=== PATIENT | female | born 1945 | race Caucasian/White ===

== ENCOUNTER 2017-05-17 13:58 | Inpatient (IN) | payer MEDICARE, OTHER ==
[2017-05-17] VITALS (12 sets, daily range): BP systolic 126–200; BP diastolic 51–101; PULSE 39–55; RESP 14–22; O2SAT 91–97
[~2017-05-17] VITALS: Ht 170.2 cm; Wt 106.3 kg
--- NOTE | 2017-05-17 14:02 | ED.REPORT ---
HPI-General Illness Date of Service May 17, 2017 ED Provider: Dr. Henderson Pt is a 71 year old female with a hx of DM, Parkinson's and pneumonia presenting to the ED via EMS from complaining of SOB onset 2 weeks ago. Associated symptoms include intermittent LE swelling, cough, and malaise. She denies any hematuria, hematemesis, black or tarry stool, chest pressure, or any other symptoms at this time. SATs on room air at were 78%. Nursing Notes Stated Complaint: SHORTNESS OF BREATH Chief Complaint: SOB Nursing Notes Reviewed: Yes Allergies: Coded Allergies: Sulfa (Sulfonamide Antibiotics) (Verified Allergy, Intermediate, PRURITIS , 05/17/17) Scheduled Acetaminophen (Acetaminophen) 500 Mg Tablet 1,500 MG PO HS Amlodipine (Amlodipine) 10 Mg Tablet 10 MG PO QAM Atorvastatin (Lipitor) 20 Mg Tablet 20 MG PO HS Bimatoprost (Lumigan) 45 Drop/2.5 Ml Ophsoln 1 DROP BOTH_EYES HS Exenatide Inj (Bydureon Inj) 2 Mg Vial 2 MG SUBQ WEEKLY WEDNESDAYS Furosemide (Furosemide) 40 Mg Tablet 40 MG PO QAM Metformin ER (Metformin ER) 500 Mg Tablet 1,000 MG PO BIDWM Primidone (Primidone) 50 Mg Tablet 75 MG PO HS General Time Seen by MD: 14:02 Chief Complaint Other (SOB) Hx Obtained From: Patient, EMS Arrived By: Ambulance Sudden in Onset?: No Onset Occurred: More than a week ago... (2 weeks) Symptom Duration: Since onset Severity: Current: No pain currently Severity: Maximum: No pain Recent Healthcare: No recent doctor visit, No recent hospitalization Similar Sx Previous: No Past Medical History Past Medical History Parkinson's Hx of pneumonia Reports: Diabetes mellitus, Denies: Cancer, Coronary artery disease Ambulatory Status Independent Review of Systems Full Review of Systems Constitutional: Reports: Malaise Respiratory: Reports: Non-productive cough, Shortness of breath Cardiovascular: Denies: Chest pain GI: Denies: Hematemesis Female: Denies: Hematuria Musculoskeletal: Reports: Extremity swelling Complete sys rev & neg: except as marked. Physical Exam Vital Signs Vital Signs Date Time Temp Pulse Resp B/P Pulse Ox O2 Delivery O2 Flow Rate FiO2 05/17/17 16:45 41 14 191/61 97 Nasal Cannula 05/17/17 15:58 39 16 146/90 96 Nasal Cannula 2 05/17/17 14:29 44 19 200/94 96 Nasal Cannula 2 05/17/17 14:16 46 19 144/51 91 Room Air Initial VS: Reviewed Head / Eyes: Atraumatic, Normocephalic, PERRL ENT: Mucous membranes moist, Conjunctiva normal, No scleral icterus Neck: Supple, Non-tender, Full range of motion Respiratory: Breath sounds normal, Clear to auscultation, No respiratory distress Abdomen / GI: Soft, Non-tender, No guarding, No rebound, No distention Skin: Warm, Dry, No cyanosis Neurologic: Alert, Oriented, Nonfocal Psychiatric: Mood/affect normal, Behavior normal, Normal thought content General/Constitutional: Awake, Alert, No acute distress Appearance / Presentation: Positive: Obese Hypoxic Cardiovascular: Regular rhythm, Heart sounds NL Bradycardic Lower Extremity / Pelvis / MS: Neurologic intact, Vascular intact 2+ edema Interpretation & Diagnostics Lab Results Interpretation Result Diagram: 05/17/17 1416 05/17/17 1416 Test 05/17/17 14:16 05/17/17 15:02 White Blood Count 6.2th/mm3 (3.8-10.1) Red Blood Count 3.54mil/mm3 (3.90-5.20) Hemoglobin 10.0g/dL (12.0-15.6) Hematocrit 32.4% (35.0-46.0) Mean Corpuscular Volume 91.5fL (81-100) Mean Corpuscular Hemoglobin 28.2pg (27.0-35.0) Mean Corpuscular Hemoglobin Concent 30.9% (32.0-37.0) Red Cell Distribution Width 14.7% (12.3-15.4) Platelet Count 285bil/L (150-400) Neutrophils (%) (Auto) 64.7% (40-74) Lymphocytes (%) (Auto) 21.3% (14-46) Monocytes (%) (Auto) 10.6% (4-12) Eosinophils (%) (Auto) 2.6% (0-5) Basophils (%) (Auto) 0.6% (0-3) D-Dimer 1.21mg/L FEU (<0.50) Sodium Level 134mEq/L (134-144) Potassium Level 4.9mEq/L (3.5-5.2) Chloride Level 96mEq/L (97-108) Carbon Dioxide Level 22mmol/L (18-29) Blood Urea Nitrogen 23mg/dL (8-27) Creatinine 0.83mg/dL (0.57-1.00) Estimat Glomerular Filtration Rate 97mL/min (>59) Glucose Level 142mg/dL (60-99) Calcium Level 9.6mg/dL (8.5-10.1) Magnesium Level 1.8mg/dL (1.6-2.6) Total Bilirubin 0.2mg/dL (0.0-1.2) Aspartate Amino Transf (AST/SGOT) 12U/L (0-50) Alanine Aminotransferase (ALT/SGPT) 10U/L (0-32) Alkaline Phosphatase 74U/L (25-165) Troponin T < 0.010ug/L (0.0-0.011) Pro-B-Type Natriuretic Peptide 1226pg/mL (0-301) Total Protein 7.5g/dL (6.4-8.4) Albumin 4.1g/dL (3.4-5.0) Hold Urine Received (Received) ECG Interpretation ECG Interpretation: Junctional rhythm. Ventricular premature complex. RBBB. Time: 14:14 Interpreted by: ED physician Abnormal Rate: 40 (43) ECG Interpretation: Sinus bradycardia with a rate of 44. RBBB. Time: 14:27 Interpreted by: ED physician ECG Interpretation: Junctional rhythm. RBBB. Time: 14:29 Interpreted by: ED physician Abnormal Rate: 40 (43) X-Ray Chest Interpretation Chest Xray Interpretation: IMPRESSION: Patchy bibasilar consolidative opacities possibly low-grade aspiration/atelectasis versus pneumonia. Cannot exclude superimposed pulmonary edema. Please correlate clinically. Dictated by: Corey Yousif M.D. on 05/17/2017 at 16:13 View: Portable, 1 view Interpretation / Wet Read by: Interpret - Radiologist CT Chest Interpretation IMPRESSION: 1. Moderate right and small left bilateral pleural effusions. 2. Multiple bilateral pulmonary nodules, subcentimeter in size but suspicious for pulmonary metastases. 3. No central pulmonary emboli identified. 4. Mediastinal and right hilar lymphadenopathy, suspect for metastatic jonathan involvement. 5. Enhancing 1 cm left adrenal nodule, suspect for metastasis. 6. Bilateral lower lobe consolidation, probably atelectatic but pneumonia or aspiration cannot be excluded, right greater than left. Dictated by: Dheeraj Nino M.D. on 05/17/2017 at 15:51 Study type: CT pulm angiogram Interpretation / Wet Read by: Interpret - Radiologist Re-Eval/Medical Decision Med Decision/Clinical Course Hypoxia associated with probable heart failure and possible undiagnosed malignancy. Unclear whether the infiltrates on CT represent atelectasis or pneumonia however the patient has a cough and will be started on Rocephin and azithromycin. Patient was given IV furosemide. Return and follow-up precautions given. Time of Eval: 14:26 Patient Status: Condition improved Re-Evaluation/Progress Note: Pt SATS on O2 at 96. HR 43. Time of Eval: 16:13 Patient Status: Condition improved Re-Evaluation/Progress Note: Discussed radiology, CT, and lab results and plan for admission. Pt understands and agrees with plan. Consultation #1: Referral / Consult Name: Ela Vargas MD Consulted With: Cardiology Call Returned at: 16:27 Sheet Rocker: Will see patient, Agrees with plan Note: Dr. Greene will follow the patient. Consultation #2: Referral / Consult Name: Xiomy Myrick DO Consulted With: Hospitalist Call Returned at: 17:32 Sheet Rocker: Will see patient, Agrees with plan, Accepts admit Counseled Regarding: Diagnosis, Lab results, Need for follow-up Discharge & Departure Primary Impression: Hypoxia Disposition: ADMITTED TO HOSPITAL Discharge Condition All VS Reviewed: Yes Condition: Improved Referrals: Darryl Sharma MD (PCP) Rachelibethan Attestation Portions of this note were transcribed by Kaley Hyman. I, Dr. Henderson personally performed the history, physical exam and medical decision-making; I reviewed and confirmed the accuracy of the information in the transcribed note. Signed by: Nathan Reeder, 05/17/17 at 1737. copies to: Darryl Sharma MD, Timothy S DO May 17, 2017 14:02 KALEY HYMAN May 17, 2017 14:10
[2017-05-17] MEDS ORDERED: Ondansetron 2 mg/mL 2 mL Inj IVPUSH ONE (14:15)
[2017-05-17 14:20] LABS: BASOPHILS % (AUTO) 0.6 % (0-3); EOSINOPHILS % (AUTO) 2.6 % (0-5); MONOCYTES % (AUTO) 10.6 % (4-12); Mean Corpuscular Hemoglobin 28.2 pg (27.0-35.0); Mean Corpuscular Volume 91.5 fL (81-100); NEUTROPHILS % (AUTO) 64.7 % (40-74); Platelet Count 285 bil/L (150-400)
[2017-05-17 14:39] LABS: TROPONIN T < 0.010 ug/L (0.0-0.011)
[2017-05-17 14:50] LABS: Magnesium 1.8 mg/dL (1.6-2.6)
--- NOTE | 2017-05-17 16:09 | DRSVH ---
PROCEDURE: CT ANGIO CHEST PULMONARY EMBOLISM ([id number]) INDICATIONS: hypoxia, elevated ddimer TECHNIQUE: After the administration of intravenous contrast, 2 mm thick sections acquired from the pulmonary api dorie to the posterior costophrenic angles. 3-dimensional maximum intensity projection (MIP) coronal a nd sagittal reformats were then acquired through the thorax. For radiation dose reduction, the follo wing was used: automated exposure control, adjustment of mA and/or kV according to patient size. COMPARISON: Chest 12/29/2016 FINDINGS: Image quality: Excellent. Pulmonary arteries: Pulmonary arteries are normal in size, and demonstrate no intraluminal filling d efects to suggest central pulmonary embolism. Lungs and pleura: Small right pleural effusion on prior chest x-ray has no developed into a moderate pleural effusion and there is a small left pleural effusion now present. Interstitial markings are ac centuated by suboptimal inspiration and compression by pleural effusions with bibasilar atelectasis/i nfiltrates, right greater than left. Interspersed between slightly dilated pulmonary vessels are nume jo-ann pulmonary nodules such as 4-6 mm nodules in the right upper lobe, series 5/images 15 and 25 and lingula images 28 and 32. There is mild groundglass opacity in the posterior and inferior left upper lobe. Mediastinum: Heart size is normal, without pericardial effusion. There is mediastinal adenopathy wit h paratracheal nodes measuring 10-15 mm in short diameter, right hilar adenopathy with nodes up to 13 mm, and probable subcarinal adenopathy partially obscured. Thoracic aorta is normal in caliber and enhancement. Esophagus is normal in caliber, without hiatal hernia. Bones and chest wall: No suspicious bony lesions. Ribs and thoracic spine appear intact throughout. Thyroid gland is mildly heterogenic. No axillary or supraclavicular adenopathy. Abdomen: Visualized upper abdominal solid organs appear normal in the early arterial phase of enhanc ement. There is a mildly enhancing 1 cm left adrenal nodule that is nonspecific but suspicious in vie w of other findings. IMPRESSION: 1. Moderate right and small left bilateral pleural effusions. 2. Multiple bilateral pulmonary nodules, subcentimeter in size but suspicious for pulmonary metastase s. 3. No central pulmonary emboli identified. 4. Mediastinal and right hilar lymphadenopathy, suspect for metastatic jonathan involvement. 5. Enhancing 1 cm left adrenal nodule, suspect for metastasis. 6. Bilateral lower lobe consolidation, probably atelectatic but pneumonia or aspiration cannot be exc luded, right greater than left. Dictated by: Dheeraj Nino M.D. on 05/17/2017 at 15:51 Approved by: Dheeraj Nino M.D. on 05/17/2017 at 16:07
--- NOTE | 2017-05-17 16:19 | DRSVH ---
PROCEDURE: X-RAY CHEST ONE VIEW, PORTABLE ([id number]) INDICATIONS: dyspnea, leg edema, hypoxia TECHNIQUE: One view of the chest was acquired. COMPARISON: [facility], CR, XR CHEST 2VW, 12/29/2016, 14:54. FINDINGS: Surgical changes and devices: None. Lungs and pleura: No pleural effusions or pneumothorax. Patchy consolidative opacities in the perihi lar regions and lung bases including the retrocardiac region. Lung volumes are mildly decreased. Mediastinum: Mediastinal contours appear normal. Heart size is normal. Bones and chest wall: No suspicious bony lesions. Overlying soft tissues appear unremarkable. IMPRESSION: Patchy bibasilar consolidative opacities possibly low-grade aspiration/atelectasis versus pneumonia. Cannot exclude superimposed pulmonary edema. Please correlate clinically. Dictated by: Corey Yousif M.D. on 05/17/2017 at 16:13 Approved by: Corey Yousif M.D. on 05/17/2017 at 16:17
[2017-05-17] MEDS ORDERED: Azithromycin Inj 500 MG in Dextrose 5% w/Vial Mate 250 ML IV ONE (16:25)
[2017-05-17] MEDS ORDERED: cefTRIAXone Inj 2,000 MG in Dextrose 5% Minibag Plus 50 ML IV ONE (16:25)
[2017-05-17] MEDS ORDERED: Furosemide 10 mg/mL 4 mL Inj IVPUSH ONE (16:25)
[2017-05-17] MEDS ORDERED: Ondansetron 2 mg/mL 2 mL Inj IVPUSH PRN ×2 (17:40→17:55)
[2017-05-17] MEDS ORDERED: Alum-Mag Hydrox-Simeth 30 mL Suspension PO PRN ×2 (17:40→17:55)
[2017-05-17] MEDS ORDERED: PRIM50TA PO (17:54)
[2017-05-17] MEDS ORDERED: BIMA2.5D5 BOTH_EYES (17:54)
[2017-05-17] MEDS ORDERED: Polyethylene Glycol (PEG) 17 Gm Powder PO PRN (17:55)
[2017-05-17] MEDS ORDERED: ATOR20TA PO (17:57)
[2017-05-17] MEDS ORDERED: ACET-171 PO (17:57)
[2017-05-17] MEDS ORDERED: EXEN2VIA SUBQ (17:57)
[2017-05-17] MEDS ORDERED: METF500T7 PO (17:57)
[2017-05-17] MEDS ORDERED: FURO40TA4 PO (17:57)
[2017-05-17] MEDS ORDERED: AMLO10TA3 PO (17:57)
--- NOTE | 2017-05-17 18:34 | PCM.HPMED ---
Subjective Date of Service May 17, 2017 Primary Provider: Admitting Physician: Xiomy Myrick DO Primary Care Physician: Jose Angel Neal MD Attending Physician: Xiomy Myrick DO Chief Complaint: Increasing shortness of breath and fatigue for 2 weeks History of Present Illness: Allie Lopez is a pleasant 71 year old female with a past medical history significant for Hypertension, Diabetes type 2, and Parkinson's disease that presented to the Emergency Department on 05/17 via EMS with complaints of shortness of breath and fatigue that has been increasing steadily for 2 weeks now. She denies any inciting event, just a progressive feeling of exhaustion and trouble breathing that now even walking 10 feet is almost impossible for her. She also endorses a nonproductive cough and intermittent bilateral LE edema throughout the past 2 weeks. She denies any chest pain or pressure, palpitations, fever/chills, nausea/vomiting, hemoptysis, melena or headaches. Review of Systems: A comprehensive review of systems was conducted with the patient and found to be negative except as above in the History of Present Illness. Allergies Coded Allergies: Sulfa (Sulfonamide Antibiotics) (Verified Allergy, Intermediate, PRURITIS , 05/17/17) Home Medications Primidone 50mg daily Amlodipine 10mg qAM Atorvastatin 20mg qHS Exenatide 2mg Subq weekly Lasix 40mg daily qAM Metformin 500mg BID PMH Diabetes Mellitus, Type 2 insulin using Parkinson's Disease Hypertension Surgical History Right Hip Replacement Right shoulder tumor removal at age 7 Right Ankle Surgery Family History Father: of Lung Cancer (smoker, worked in Uranium mines) Mother: Macular degeneration, otherwise healthy and passed at 94 Social History Hx Alcohol Use: Yes (1/week) Hx Substance Use: No Hx Tobacco Use: No Living Arrangement: with Family Exam Vital Signs Vital Sign - Last Date Time Temp Pulse Resp B/P Pulse Ox O2 Delivery O2 Flow Rate FiO2 05/17/17 18:17 55 15 193/101 96 Nasal Cannula 3 Exam General: Obese elderly woman in no acute distress, well-developed, well- nourished, appropriately interactive HEENT: Normocephalic, atraumatic. External ears without defect. Pupils equal, round, and reactive to light and accommodation. Oropharynx free of erythema and cobble stoning with moist mucosa. Neck: Supple with full range of motion. No jugular venous distension. No lymphadenopathy or thyromegaly. Cardiovascular: Regular rate and rhythm with no murmurs, rubs, or gallops appreciated Pulmonary: Wet crackles in the lung bases bilaterally. No wheezing/rhonchi. Normal respiratory effort without use of accessory muscles. Abdomen: Bowel tones present. Soft, obese, nontender, nondistended. No hepatosplenomegaly or masses appreciated. Extremities: Edema up to the knees bilaterally. No clubbing, cyanosis, erythema appreciated. Skin: Normal temperature, turgor, and texture Neurological: Cranial nerves grossly intact. Normal muscle strength, tone, and bulk. Left hand tremulous throughout exam. No known gait impairment. Psychiatric: Normal mood and affect. Alert and oriented to person, place, and time. Lab and Diagnostics Result Diagram: 05/17/17 1416 05/17/17 1416 Microbiology Blood cultures pending UA ordered X-Rays, CTs and MRIs Chest XR 05/17 IMPRESSION: Patchy bibasilar consolidative opacities possibly low-grade aspiration/ atelectasis versus pneumonia. Cannot exclude superimposed pulmonary edema. Please correlate clinically. Dictated by: Corey Yousif M.D. on 05/17/2017 at 16:13 Approved by: Corey Yousif M.D. on 05/17/2017 at 16:[address]/Angio 05/17 IMPRESSION: 1. Moderate right and small left bilateral pleural effusions. 2. Multiple bilateral pulmonary nodules, subcentimeter in size but suspicious for pulmonary metastases. 3. No central pulmonary emboli identified. 4. Mediastinal and right hilar lymphadenopathy, suspect for metastatic jonathan involvement. 5. Enhancing 1 cm left adrenal nodule, suspect for metastasis. 6. Bilateral lower lobe consolidation, probably atelectatic but pneumonia or aspiration cannot be excluded, right greater than left. Dictated by: Dheeraj Nino M.D. on 05/17/2017 at 15:51 Approved by: Dheeraj Nion M.D. on 05/17/2017 at 16:07 Assessment & Plan Allie Lopez is a pleasant 71 year old female with a past medical history significant for Hypertension, Diabetes type 2, and Parkinson's disease that presented to the Emergency Department on 05/17 via EMS with complaints of shortness of breath and fatigue that has been increasing steadily for 2 weeks now. Dyspnea on Exertion acute (new onset) CHF, present on admission. Acute. Ongoing. - Patient has nonproductive cough, increasing SOB for 2 weeks - D-dimer positive, CT angio negative for PE - CXR and CT Angio images reviewed - infectious vs. metastatic origin - Blood cultures ordered - Received Ceftriaxone, Azithromycin in the ED - Respiratory PCR ordered - Elevated BNP 1226 - Legionella, Pneumococcus ordered - Sputum culture ordered if cough become productive - Echocardiogram ordered - Continue antibiotics as above pending cultures Pulmonary Lesions, present on admission. Chronic. Ongoing. - Patient has family history of lung cancer, no smoking history - CT Angio revealed multiple bilateral pulmonary lesions with bibasilar effusions - Will discuss findings with patient in the morning to evaluate - Consider oncology consult in the morning Bradycardia, present on admission. Unknown chronicity. Ongoing. - EKG showed NSR, bradycardic with RBBB - Patient reports ~2 weeks fatigue and dyspnea on exertion - Echo ordered - Avoid chronotropic blood pressure meds Acute Hypoxic Respiratory Failure, present on admission. Stable. - Patient is not on oxygen at baseline - Patient on 2L nasal cannula to maintain appropriate o2 saturations - Likely due to bibasilar pleural effusions as above - Continue to monitor Hypertension, present on admision. Chronic. Ongoing. - Patient's reports good BP control with home meds (Amlodipine 10mg, Lasix 40mg) - BP in the Emergency Department raised to 190-200 systolic - Continue home meds as above - Enalapril 5mg PO once - Avoid chronotropic meds as she is bradycardic - Continue to monitor Diabetes Mellitus Type 2, present on admission. Chronic. Stable. - Patient on Metformin, Exenatide at home - Hold Metformin, Exenatide - HA1C ordered - Start low dose correctional and nutritional scale - Continue to monitor Parkinson's Disease, present on admission. Chronic. Stable. - Continue Primidone Obesity, present on admission. Chronic. - BMI 36.7 - Consider dietary consult - Educate patient on available community resources Acetaminophen for mild pain, headache, and fever when necessary. Bowel regimen Senna and MiraLAX scheduled as necessary. Zofran when necessary for nausea and vomiting. SubQ heparin held for now. SCDs in place. Patient Status: Patient is admitted to the inpatient service with length of stay likely >2 midnights due to complexity of presenting symptoms, medical work up, and treatment plan. VTE Mechanical Devices: Intermittant Pneumatic CD Resuscitation Status: CPR: Attempt Resuscitation (Patient would like "an attempt made" but that her boat patcher plastic friend Dr. Paul Velez would be in charge and when to "call it") Attending Statement The patient was seen and examined together with Dr. Harry on 05/17/17 and I have added additional information to the note above. Brian Harry DO May 17, 2017 18:34 Xiomy Myrick DO May 21, 2017 17:23
[2017-05-17] MEDS ORDERED: Insulin LISPRO Low-Dose Scale SUBQ PRN (19:00)
[2017-05-17] MEDS ORDERED: Glucose 40% Oral Gel 15 Gm Tube PO PRN (19:00)
[2017-05-17] MEDS ORDERED: Dextrose 5% 250 ML IV PRN (19:10)
[2017-05-17] MEDS ORDERED: Enalaprilat 1.25 mg/mL 2 mL Inj IVPUSH ONE (19:35)
[2017-05-17] MEDS: Albuterol-Ipratropium 3 mL Inhalation Solution NEB SCH (20:04)
[2017-05-17 20:12] LABS: APPEARANCE,URINE CLEAR (CLEAR,HAZY); COLOR,URINE YELLOW (YELLOW); OCCULT BLOOD,URINE SMALL (NEGATIVE); PH,URINE 5.5 (5.0-8.0); UROBILINOGEN,URINE NORMAL (NORMAL)
[2017-05-17] MEDS: cefTRIAXone Inj 2,000 MG in Dextrose 5% Minibag Plus 50 ML IV SCH (22:49)
--- NOTE | 2017-05-17 22:57 | NUR ---
admit note pt already in room at change of shift, pt reports not feeling good over the last 5 weeks, progressively getting weaker and more SOB, pt went to urgent care and found to by hypoxic sent over to ED. r/o PE with CT, pt on 1L NC SpO2 93-95%, pt with SOB during activity and with increased talking, gave lasix in ED pt voiding large amounts and actually states she is feeling better, IV ABX started late r/t waiting for second BC to be obtained, pts BP elevated 190s/70s gave IV Vasotec, per MD wait one hour if still elevated give PO Vasotec, SBP 120s. tele SB with IVCD rate 46-48, pt denies any pain, BG 128 pt takes metformin which is on hold r/t CT. pt able to transfer to [facility], orientated pt to call light, room and bed.
[2017-05-18] VITALS (12 sets, daily range): BP systolic 149–186; BP diastolic 62–85; PULSE 41–63; RESP 14–22; O2SAT 92–96
[2017-05-18] MEDS: Heparin 5,000 Unit/mL Inj SUBQ SCH ×5 (00:02→23:36)
[2017-05-18 03:23] LABS: BASOPHILS % (AUTO) 0.5 % (0-3); EOSINOPHILS % (AUTO) 3.4 % (0-5); MONOCYTES % (AUTO) 14.2 % (4-12); Mean Corpuscular Hemoglobin 28.2 pg (27.0-35.0); Mean Corpuscular Volume 91.5 fL (81-100); NEUTROPHILS % (AUTO) 61.1 % (40-74); Platelet Count 245 bil/L (150-400)
[2017-05-18 03:44] LABS: Magnesium 1.7 mg/dL (1.6-2.6)
--- NOTE | 2017-05-18 05:37 | NUR ---
HR/BP pt becoming hypertensive again, informed MD no new orders received and MD not wanting to give PO Vasotec, pts HR 35-41 this evening while she is sleeping called no new orders received. pt asymptomatic with both
[2017-05-18] MEDS: Albuterol-Ipratropium 3 mL Inhalation Solution NEB SCH ×4 (07:35→20:01)
[2017-05-18] MEDS ORDERED: cefTRIAXone Inj 2,000 MG in Dextrose 5% Minibag Plus 50 ML IV SCH (08:00)
[2017-05-18] MEDS ORDERED: Furosemide 10 mg/mL 4 mL Inj IVPUSH ONE (09:20)
--- NOTE | 2017-05-18 09:45 | NUR ---
Rounds notified that pt remains bradycardic in 40s with dips into 30s overnight. Pt denied symptoms this am while up to [facility] Per pt she is feeling improved from yesterday with easier breathing and decreased bilateral lower extremity edema. Remains stable on 1LNC. Will continue to monitor.
--- NOTE | 2017-05-18 15:02 | NUR ---
Social Work Note: Initial Assessment/Multidisciplinary Rounds Data& Assessment: EMR reviewed. Pt was discussed in AM rounds. Per MD, pt is being followed by cardiology and may have a new CHF diagnosis. SW met with pt and pt at bedside to discuss discharge planning, SW role explained and Discharge Planning checklist packet provided. Allie Lopez is a 71 year old female admitted on 05/12/2017 for sepsis and anemia. Pt has Medicare and [employer] insurance coverage. Pt sees Jose Angel Espinosa MD for primary care. Pt lives in [place] with her spouse and is independent at baseline. Pt is independent with self care during this hospitalization. MD does not have any concerns about capacity to care for self at home. Pt does not require any DME at baseline, but does own a FWW and cane at home. Pt does not have HH hx but has been to [facility] this November after a hip replacement. Pt does not have VA benefits or LTC insurance. Pt currently on 1L of oxygen and normally does not require oxygen at baseline. Pt does have DPOA/AD completed, SW requested a copy when possible. Pt and pt denies any needs at this time. SW to continue to follow for pt needs or MD orders. Plan: Anticipated discharge home via POV when medically ready. Pt and pt denies any needs at this time. SW to continue to follow for pt needs or MD orders. TERESO Servin Addendum: 05/18/17 at 1521 by KODY PERERA Amended: Links added.
--- NOTE | 2017-05-18 15:21 | NUR ---
Blood Sugar notified of lunch blood glucose 191. to order SS insulin. Will monitor.
[2017-05-18] MEDS ORDERED: Glucose 40% Oral Gel 15 Gm Tube PO PRN (15:25)
[2017-05-18] MEDS ORDERED: Dextrose 5% 250 ML IV PRN (15:30)
[2017-05-18] MEDS: Insulin LISPRO 300 Unit/3 mL Inj SUBQ SCH ×2 (17:06→22:07)
--- NOTE | 2017-05-18 17:24 | DRSVH ---
Merged With [facility] [address] [place] [address] Echocardiogram Report Name: KANU FALCON HStudy Date: 05/18/2017 Height: 67 in Hospital Exam Location: [facility] Weight: 243 lb Gender: Female BSA: 2.2 m2 : 1945 Age: 71 yrs BP: 149/62 mm Hg Reason For Study: SOB, ELEVATED BNP, EDEMA Ordering Physician: Debbie AlemanistPerformed By: Jaren Shin Referring Physician: SAVANNAH JOHNSON Interpretation Summary There is normal left ventricular wall thickness. Left ventricular ejection fraction is estimated to be .60. The left atrium is severely dilated. There is mild mitral regurgitation. There is mild to moderate tricuspid regurgitation. The right ventricular systolic pressure is estimated at 45 mmHg assuming a right atrial pressure of 8 mm Hg. Procedure: A two-dimensional transthoracic echocardiogram with color flow and Doppler was performed. The study quality was technically adequate. Comparison is made with the echocardiogram of 12/29/12. The patient was in sinus bradycardia with heart rates between 41-46 bpm during the exam. Left Ventricle: The left ventricle is normal in size. There is normal left ventricular wall thickness. Left ventricular ejection fraction is estimated to be .60. Left ventricular wall motion is normal. Assessment of diastolic parameters suggests a pseudonormalization pattern, consistent with elevated filling pressures. Right Ventricle: The right ventricle is borderline dilated. Atria: The left atrium is severely dilated. Borderline right atrial enlargement. There is no Doppler evidence for an interatrial shunt. Mitral Valve: The mitral valve leaflets are mildly calcified. There is mild to moderate mitral annular calcification. The mitral valve chordae are thickened and/or calcified. There is mild mitral regurgitation. Aortic Valve: The aortic valve is normal in structure and function. There is mild aortic valve sclerosis. There is trace aortic regurgitation. Tricuspid Valve: There is mild to moderate tricuspid regurgitation. The right ventricular systolic pressure is estimated at 45 mmHg assuming a right atrial pressure of 8 mm Hg. Compared to the prior echo exam, there has been an increase in the severity of pulmonary hypertension. Pulmonic Valve: The pulmonic valve is not well seen, but is grossly normal. There is a trace or physiologic amount of pulmonic regurgitation. Great Vessels: The aortic root is normal size. The ascending aorta is mildly enlarged. The pulmonary artery is normal size. The IVC is dilated (diameter is greater than 2.1 cm) yet it collapses greater than 50% with a sniff. This suggests a right atrial pressure of 8 mm Hg. Pericardium/ Pleura There is no pericardial effusion. There is a small left -sided pleural effusion. MMode/2D Measurements & Calculations LVIDd: 4.9 cm RA long axis LVOT diam LVIDs: 3.1 cm LA A2 area: 25.2 cm FS: 36.6 % LA A4 area: 29.3 cm RA area AoV Opening EPSS: 0.30 cm LA length (vol): 5.9 cm IVSd: 1.0 cm LA vol: 106.4 ml : 20.4 cm Ao root diam LVPWd: 0.89 cm LA vol index RA vol : 67.0 ml asc Aorta RA Diam: 3.4 cm IVC diam: 3.2 cm : 30.5 mm2 LV meyers. diameter/BSA LV sys. diameter/BSA (cm/m^2): 2.2 (cm/m^2): 1.4 Doppler Measurements & Calculations Ao V2 max: 215.5 cm/secMV E max jonny MV E/A: 1.4 TR max jonny Ao max P.6 mmHg : 137.9 cm/sec Med Peak E' Jonny : 304.1 cm/sec Ao mean P.2 mmHg MV A max jonny TR max PG LVOT Max Jonny : 98.4 cm/sec E/E' med: 24.7 : 37.0 mmHg : 118.7 cm/sec Lat Peak E' Jonny PA V2 max DEBBIE(I,D): 1.7 cm : 112.7 cm/sec sev ratio: 0.58 E/E' lat: 21.1 PA mean PG E/e' average : 2.6 mmHg MV dec time: 0.35 sec Ao V2 mean LV V1 max PG PA V2 mean : 142.8 cm/sec : 75.9 cm/sec Ao V2 VTI: 53.4 cmLV V1 VTI PA pr(Accel) DEBBIE(V,D): 1.7 cm2 : 31.0 cm : 18.3 mmHg DEBBIE indexed to BSA (cm^2/m^2): 0.79 Electronically signed by: Bridger Green on Reading Physician:05/18/2017 05:24 PM
--- NOTE | 2017-05-18 18:28 | PCM.PNMED ---
Subjective Date of Service May 18, 2017 Subjective Overnight there were no acute events. This morning, Mrs. Lopez reports breathing easier and feeling better than on admission. She denies chest pain, palpitations, productive cough, nausea/ vomiting, fevers or chills. We spent most our discussion on the multiple pulmonary nodules and what they mean to her overall treatment. Exam Vital Signs Vital Sign - Last Date Time Temp Pulse Resp B/P Pulse Ox O2 Delivery O2 Flow Rate FiO2 05/18/17 17:25 157/71 05/18/17 16:31 36.7 56 16 95 Nasal Cannula 1.00 Intake and Output 05/17/17 05/17/17 05/18/17 Cumulative From/Thru 15:00 23:00 07:00 05/17/17 14:16 - 05/18/17 06:06 Intake Total 1015 ml 1015 ml Output Total 400 ml 1550 ml 1950 ml Balance -400 ml -535 ml -935 ml Intake Oral 720 ml 720 ml IV Total 295 ml 295 ml Output Urine Total 400 ml 1550 ml 1950 ml # Voids 1 1 Exam General: Obese elderly woman in no acute distress, well-developed, well- nourished, appropriately interactive HEENT: NCAT. Pupils equal, round, and reactive to light and accommodation. Oropharynx free of erythema with moist mucosa. Neck: Supple with full range of motion. No jugular venous distension. No thyromegaly. Cardiovascular: Bradycardic with normal rhythm without murmurs, rubs, or gallops appreciated Pulmonary: Slight crackles in the lung bases bilaterally. No wheezing/rhonchi. Normal respiratory effort without use of accessory muscles. Abdomen: Bowel tones present. Soft, obese, nontender, nondistended. No hepatosplenomegaly appreciated. Extremities: Mild edema up to the knees bilaterally. No clubbing, cyanosis, erythema appreciated. Skin: Normal temperature, turgor, and texture Neurological: Cranial nerves grossly intact. Normal muscle strength, tone, and bulk. Left hand tremulous throughout exam. No known gait impairment. Psychiatric: Normal mood and affect. Alert and oriented to person, place, and time. IVs and Medications Medications Reviewed: Medications were reviewed in detail Lab and Diagnostics Result Diagram: 05/18/17 0250 05/18/17 0250 Microbiology Blood cultures pending UA ordered X-Rays, CTs and MRIs Chest XR 05/17 IMPRESSION: Patchy bibasilar consolidative opacities possibly low-grade aspiration/ atelectasis versus pneumonia. Cannot exclude superimposed pulmonary edema. Please correlate clinically. Dictated by: Corey Yousif M.D. on 05/17/2017 at 16:13 Approved by: Corey Yousif M.D. on 05/17/2017 at 16:[address]/Angio 05/17 IMPRESSION: 1. Moderate right and small left bilateral pleural effusions. 2. Multiple bilateral pulmonary nodules, subcentimeter in size but suspicious for pulmonary metastases. 3. No central pulmonary emboli identified. 4. Mediastinal and right hilar lymphadenopathy, suspect for metastatic jonathan involvement. 5. Enhancing 1 cm left adrenal nodule, suspect for metastasis. 6. Bilateral lower lobe consolidation, probably atelectatic but pneumonia or aspiration cannot be excluded, right greater than left. Dictated by: Dheeraj Nino M.D. on 05/17/2017 at 15:51 Approved by: Dheeraj Nino M.D. on 05/17/2017 at 16:07 Cardiac Echo Impressions Echo 05/18/17 Interpretation Summary There is normal left ventricular wall thickness. Left ventricular ejection fraction is estimated to be .60. The left atrium is severely dilated. There is mild mitral regurgitation. There is mild to moderate tricuspid regurgitation. The right ventricular systolic pressure is estimated at 45 mmHg assuming a right atrial pressure of 8 mm Hg. Assessment & Plan Allie Lopez is a pleasant 71 year old female with a past medical history significant for Hypertension, Diabetes type 2, and Parkinson's disease that presented to the Emergency Department on 05/17 via EMS with complaints of shortness of breath and fatigue that has been increasing steadily for 2 weeks now. Dyspnea on Exertion acute (new onset) diastolic CHF, present on admission. Acute. Ongoing. - Patient has nonproductive cough, increasing SOB for 2 weeks - D-dimer positive, CT angio negative for PE - CXR and CT Angio images reviewed - infectious vs. metastatic origin - Blood cultures negative - Received Ceftriaxone, Azithromycin in the ED - Respiratory PCR panel trujillo-negative - Legionella, Pneumococcus negative - Sputum culture ordered if cough become productive - Echocardiogram as above - Will discontinue antibiotics 05/19 depending on the chest xray Pulmonary Lesions, present on admission. Chronic. Ongoing. - Patient has family history of lung cancer, no smoking history - CT Angio revealed multiple bilateral pulmonary lesions with bibasilar effusions - Case discussed with IR, no lesions amenable to biopsy at this time - Case discussed with Oncology, recommend PET scan and follow up as outpatient - Discussed with patient; plan is to get repeat imaging in 3 months to reevaluate Bradycardia, present on admission. Unknown chronicity. Ongoing. - EKG showed NSR, bradycardic with RBBB - Patient reports ~2 weeks fatigue and dyspnea on exertion - Echo as above - Avoid chronotropic blood pressure meds -Cardiology consulted for ongoing symptomatic bradycardia Acute Hypoxic Respiratory Failure, present on admission. Improving. - Patient is not on oxygen at baseline - Patient decreased to 1L nasal cannula to maintain appropriate o2 saturations - Likely due to bibasilar pleural effusions as above - Continue to wean as able Hypertension, present on admision. Chronic. Improving. - Patient's reports good BP control with home meds (Amlodipine 10mg, Lasix 40mg) - BP in the Emergency Department raised to 190-200 systolic - Amlodipine stopped due to LE edema, Lisinopril started - Consider increasing Lisinopril if blood pressure increases - Avoid chronotropic meds as she is bradycardic Diabetes Mellitus Type 2, present on admission. Chronic. Stable. - Patient on Metformin, Exenatide at home - Hold Metformin, Exenatide - HA1C pending - Continue low dose correctional and nutritional scale - Will consider adding Lantus depending on morning blood sugars Parkinson's Disease, present on admission. Chronic. Stable. - Continue Primidone Obesity, present on admission. Chronic. - BMI 36.7 - Educate patient on available community resources Acetaminophen for mild pain, headache, and fever when necessary. Bowel regimen Senna and MiraLAX scheduled as necessary. Zofran when necessary for nausea and vomiting. SubQ heparin on board. SCDs in place. Disposition: Patient will likely be here for 2-3 more days depending on the continued improvement of her respiratory status and overall medical stability. VTE Mechanical Devices: Intermittant Pneumatic CD Resuscitation Status: CPR: Attempt Resuscitation (Patient would like "an attempt made" but that her assembly instructions writer friend Dr. Paul Velez would be in charge and when to "call it") Attending Statement The patient was seen and examined together with Dr. Harry on 05/18/17 and I have added additional information to the note above. Brian Harry DO May 18, 2017 18:28 Xiomy Myrick DO May 21, 2017 17:18
[2017-05-18] MEDS: cefTRIAXone Inj 2,000 MG in Dextrose 5% Minibag Plus 50 ML IV SCH (20:33)
[2017-05-18] MEDS ORDERED: Azithromycin Inj 500 MG in Dextrose 5% w/Vial Mate 250 ML IV SCH (21:00)
[2017-05-19] VITALS (15 sets, daily range): BP systolic 138–203; BP diastolic 62–84; PULSE 42–70; RESP 18–20; O2SAT 91–99
[2017-05-19 02:54] LABS: BASOPHILS % (AUTO) 0.4 % (0-3); EOSINOPHILS % (AUTO) 4.2 % (0-5); MONOCYTES % (AUTO) 17.2 % (4-12); Mean Corpuscular Hemoglobin 28.2 pg (27.0-35.0); Mean Corpuscular Volume 91.1 fL (81-100); NEUTROPHILS % (AUTO) 54.3 % (40-74); Platelet Count 224 bil/L (150-400)
--- NOTE | 2017-05-19 06:31 | NUR ---
weakness pt reports feeling weaker this morning then she has felt, pt still SB rate high 30 low 40s, pt SBP still elevated in the 160s. pt denies any or dizziness just generalized weakness.
[2017-05-19] MEDS: Insulin LISPRO 300 Unit/3 mL Inj SUBQ SCH ×4 (08:00→21:58)
[2017-05-19] MEDS: Furosemide 10 mg/mL 4 mL Inj IVPUSH SCH ×2 (08:14→21:54)
[2017-05-19] MEDS: Heparin 5,000 Unit/mL Inj SUBQ SCH ×2 (08:15→17:11)
[2017-05-19] MEDS: Albuterol-Ipratropium 3 mL Inhalation Solution NEB SCH ×5 (08:28→20:14)
[2017-05-19] MEDS ORDERED: EXENATIDE 2 MG SUBQ SCH (09:00)
--- NOTE | 2017-05-19 09:11 | DRSVH ---
PROCEDURE: X-RAY CHEST, TWO VIEWS ([id number]) INDICATIONS: 71 year-old female with shortness of breath and pleural effusions. TECHNIQUE: 2 views of the chest were acquired. COMPARISON: [facility], CR, XR CHEST 1VW (PORTABLE), 05/17/2017, 15:39. [facility], CR, XR CHEST 2VW, 12/29/2016, 14:54. FINDINGS: Surgical changes and devices: None. Lungs and pleura: Patchy bibasilar airspace opacities persist. Trace bibasilar pleural effusions are present. No pneumothorax. Mediastinum: Mediastinal contours are normal. Heart size is normal. Bones and chest wall: No suspicious bony abnormalities. Soft tissues appear unremarkable. IMPRESSION: 1. Persistent patchy bibasilar atelectasis, aspiration, or early bronchopneumonia. 2. Trace bibasilar pleural effusions are of uncertain etiology. Dictated by: Krunal Isabel M.D. on 05/19/2017 at 8:08 Approved by: Krunal Isabel M.D. on 05/19/2017 at 8:09
--- NOTE | 2017-05-19 11:04 | PCM.PNMED ---
Subjective Date of Service May 19, 2017 Subjective Overnight the patient attempted to sleep without oxygen and her saturations fell into the upper 80's. This morning Mr. Lopez reports feeling a sense of generalized weakness and more short of breath than previously. She had a conversation on the phone with her daughter and noted that at the end she was having issues breathing. She denies productive cough, chest pain, fever/chills, nausea/vomiting, or hemoptysis. Exam Vital Signs Vital Sign - Last Date Time Temp Pulse Resp B/P Pulse Ox O2 Delivery O2 Flow Rate FiO2 05/19/17 08:29 49 18 93 Nasal Cannula 1.00 05/19/17 08:08 36.6 177/72 Intake and Output 05/18/17 05/18/17 05/19/17 Cumulative From/Thru 15:00 23:00 07:00 05/17/17 14:16 - 05/19/17 06:24 Intake Total 800 ml 1645 ml 3460 ml Output Total 1475 ml 2100 ml 5525 ml Balance -675 ml -455 ml -2065 ml Intake Oral 800 ml 1300 ml 2820 ml IV Total 345 ml 640 ml Output Urine Total 1475 ml 2100 ml 5525 ml # Voids 1 # Bowel Movements 2 2 Exam General: Obese elderly woman sitting upright in no acute distress, well- developed, well-nourished, appropriately interactive HEENT: NCAT. Pupils equal, round, and reactive to light and accommodation. Oropharynx free of erythema with moist mucosa. Neck: Supple with full range of motion. No jugular venous distension. No thyromegaly. Cardiovascular: Bradycardic with normal rhythm without murmurs, rubs, or gallops appreciated Pulmonary: Coarse breath sounds bilaterally. No wheezing/rhonchi. Normal respiratory effort without use of accessory muscles. Abdomen: Bowel tones present. Soft, obese, nontender, nondistended. No hepatosplenomegaly appreciated. Extremities: Mild edema up to just under the knees bilaterally. No clubbing, cyanosis, erythema appreciated. Skin: Normal temperature, turgor, and texture Neurological: Cranial nerves grossly intact. Normal muscle strength, tone, and bulk. Left hand tremulous throughout exam. No known gait impairment. Psychiatric: Normal mood and affect. Alert and oriented to person, place, and time. IVs and Medications Medications Reviewed: Medications were reviewed in detail Lab and Diagnostics Result Diagram: 05/19/17 0235 05/19/17 0235 Microbiology Blood cultures pending UA ordered X-Rays, CTs and MRIs Chest XR 05/19 IMPRESSION: 1. Persistent patchy bibasilar atelectasis, aspiration, or early bronchopneumonia. 2. Trace bibasilar pleural effusions are of uncertain etiology. Dictated by: Krunal Isabel M.D. on 05/19/2017 at 8:08 Approved by: Krunal Isabel M.D. on 05/19/2017 at 8:09 Chest XR 05/17 IMPRESSION: Patchy bibasilar consolidative opacities possibly low-grade aspiration/ atelectasis versus pneumonia. Cannot exclude superimposed pulmonary edema. Please correlate clinically. Dictated by: Corey Yousif M.D. on 05/17/2017 at 16:13 Approved by: Corey Yousif M.D. on 05/17/2017 at 16:[address]/Angio 05/17 IMPRESSION: 1. Moderate right and small left bilateral pleural effusions. 2. Multiple bilateral pulmonary nodules, subcentimeter in size but suspicious for pulmonary metastases. 3. No central pulmonary emboli identified. 4. Mediastinal and right hilar lymphadenopathy, suspect for metastatic jonathan involvement. 5. Enhancing 1 cm left adrenal nodule, suspect for metastasis. 6. Bilateral lower lobe consolidation, probably atelectatic but pneumonia or aspiration cannot be excluded, right greater than left. Dictated by: Dheeraj Nino M.D. on 05/17/2017 at 15:51 Approved by: Dheeraj Nino M.D. on 05/17/2017 at 16:07 Cardiac Echo Impressions Echo 05/18/17 Interpretation Summary There is normal left ventricular wall thickness. Left ventricular ejection fraction is estimated to be .60. The left atrium is severely dilated. There is mild mitral regurgitation. There is mild to moderate tricuspid regurgitation. The right ventricular systolic pressure is estimated at 45 mmHg assuming a right atrial pressure of 8 mm Hg. Assessment & Plan Allie Lopez is a pleasant 71 year old female with a past medical history significant for Hypertension, Diabetes type 2, and Parkinson's disease that presented to the Emergency Department on 05/17 via EMS with complaints of shortness of breath and fatigue that has been increasing steadily for 2 weeks now. Dyspnea on Exertion, present on admission. Acute. Ongoing. - Patient has nonproductive cough, increasing SOB for 2 weeks - D-dimer positive, CT angio negative for PE - CXR and CT Angio images reviewed - infectious vs. metastatic origin - Blood cultures, respiratory PCR panel, legionella and pneumococcal all negative - Sputum culture pending - Repeat CXR still indeterminate for pneumonia; patient has been afebrile with no suspicious infectious markers - Continue Azithromycin for antiinflammatory properties, discontinue Ceftriaxone - Echo as above - Cardiology consulted to evaluate symptomatic bradycardia Pulmonary Lesions, present on admission. Chronic. Ongoing. - Patient has family history of lung cancer, no smoking history - CT Angio revealed multiple bilateral pulmonary lesions with bibasilar effusions - Case discussed with IR, no lesions amenable to biopsy at this time - Case discussed with Oncology, recommend PET scan and follow up as outpatient - Discussed with patient; plan is to get repeat imaging in 3 months to reevaluate Bradycardia, present on admission. Unknown chronicity. Ongoing. - EKG showed NSR, bradycardic with RBBB - Patient reports ~2 weeks fatigue and dyspnea on exertion - Echo as above - Avoid chronotropic blood pressure meds -Cardiology consulted as above Acute Hypoxic Respiratory Failure, present on admission. Ongoing. - Patient is not on oxygen at baseline - Patient has been steady at 1L nasal cannula to maintain appropriate O2 saturations - Patient unable to wean off oxygen at night 05/18, saturations fell to high 80's - Continue to wean as able Hypertension, present on admision. Chronic. Improving. - Patient's reports good BP control with home meds (Amlodipine 10mg, Lasix 40mg) - BP in the Emergency Department raised to 190-200 systolic - Amlodipine stopped due to LE edema - Lisinopril increased to 40mg daily alongside Lasix 40mg IV twice daily - Avoid chronotropic meds as she is bradycardic Diabetes Mellitus Type 2, present on admission. Chronic. Stable. - Patient on Metformin, Exenatide at home - Hold Exenatide - Restart Metformin 500mg BID - HA1C 7.6 - Continue low dose correctional and nutritional scale - Blood glucose 125 this morning 05/19, will continue to evaluate need for Lantus Parkinson's Disease, present on admission. Chronic. Stable. - Continue Primidone Obesity, present on admission. Chronic. - BMI > 30 - Educate patient on available community resources Acetaminophen for mild pain, headache, and fever when necessary. Bowel regimen Senna and MiraLAX scheduled as necessary. Zofran when necessary for nausea and vomiting. SubQ heparin on board. SCDs in place. Disposition: Patient will likely be here for 2-3 more days depending on the continued improvement of her respiratory status and overall medical stability. VTE Mechanical Devices: Intermittant Pneumatic CD Resuscitation Status: CPR: Attempt Resuscitation (Patient would like "an attempt made" but that her primary health organisation manager friend Dr. Paul Velez would be in charge and when to "call it") Attending Statement The patient was seen and examined together with Dr. Harry on 05/19/17 and I have added additional information to the note above. Brian Harry DO May 19, 2017 10:01 Xiomy Myrick DO May 21, 2017 12:47
--- NOTE | 2017-05-19 12:17 | NUR ---
Blood Sugar notified that lunch time blood sugar 201. Pt ate mozambican seema and dinora for breakfast. Will monitor. Addendum: 05/19/17 at 1705 by RONNI BLACK RN notified of dinner blood sugar 194. to add jayy. Will monitor.
--- NOTE | 2017-05-19 13:04 | NUR ---
Blood pressure MD notified of Bp 198/73. Pt denies chest pain. Will monitor. MD to determine need for orders.
[2017-05-19] MEDS ORDERED: hydrALAZINE 20 mg/mL Inj IV ONE ×2 (17:40→17:45)
[2017-05-19] MEDS: Insulin GLARgine 100 Unit/mL Syringe SUBQ SCH (21:59)
[2017-05-20] VITALS (14 sets, daily range): BP systolic 147–205; BP diastolic 66–79; PULSE 47–63; RESP 16–20; O2SAT 91–96
[2017-05-20] MEDS: Heparin 5,000 Unit/mL Inj SUBQ SCH ×3 (01:11→17:26)
[2017-05-20 03:15] LABS: BASOPHILS % (AUTO) 0.6 % (0-3); EOSINOPHILS % (AUTO) 3.8 % (0-5); MONOCYTES % (AUTO) 15.4 % (4-12); Mean Corpuscular Hemoglobin 28.3 pg (27.0-35.0); Mean Corpuscular Volume 91.3 fL (81-100); NEUTROPHILS % (AUTO) 57.2 % (40-74); Platelet Count 246 bil/L (150-400)
--- NOTE | 2017-05-20 06:17 | NUR ---
Sleep/BP Pts BP stable throughout night. No meds for high blood pressure given. Reports her goal is to get adequate sleep. Care clustered for limited interruption. Reports getting decent sleep in hospital. Care ongoing
[2017-05-20] MEDS: Albuterol-Ipratropium 3 mL Inhalation Solution NEB SCH ×3 (07:51→16:10)
[2017-05-20] MEDS ORDERED: hydrALAZINE 20 mg/mL Inj IV ONE (07:55)
[2017-05-20] MEDS ORDERED: Lisinopril 40 Tablet PO SCH (08:30)
[2017-05-20] MEDS: Furosemide 10 mg/mL 4 mL Inj IVPUSH SCH ×2 (08:42→20:47)
[2017-05-20] MEDS: Insulin LISPRO 300 Unit/3 mL Inj SUBQ SCH ×4 (08:45→20:55)
--- NOTE | 2017-05-20 11:10 | PCM.PNMED ---
Subjective Date of Service May 20, 2017 Subjective Overnight there were no acute events. Mrs. Lopez is feeling better this morning, reporting that her breathing is better and that she isn't feeling as weak as before. She says that she is urinating frequently but denies any shortness of breath, chest pain, palpitations, dysuria, nausea/vomiting or fevers/chills. Exam Vital Signs Vital Sign - Last Date Time Temp Pulse Resp B/P Pulse Ox O2 Delivery O2 Flow Rate FiO2 05/20/17 07:52 50 16 91 Room Air 05/20/17 07:41 36.8 205/68 05/19/17 15:08 1.00 Intake and Output 05/19/17 05/19/17 05/20/17 Cumulative From/Thru 15:00 23:00 07:00 05/17/17 14:16 - 05/20/17 05:28 Intake Total 1150 ml 300 ml 4910 ml Output Total 2600 ml 2600 ml 41819 ml Balance -1450 ml -2300 ml -5815 ml Intake Oral 1150 ml 300 ml 4270 ml IV Total 640 ml Output Urine Total 2600 ml 2600 ml 87724 ml # Voids 1 # Bowel Movements 0 1 3 Exam General: Obese elderly woman sitting upright in no acute distress and off oxygen , well-developed, well-nourished, appropriately interactive HEENT: NCAT. PERRLA, EOMI. Oropharynx free of erythema with moist mucosa. Neck: Supple with full range of motion. No jugular venous distension. No thyromegaly. Cardiovascular: Still bradycardic with normal rhythm without murmurs, rubs, or gallops appreciated Pulmonary: Coarse lung sounds, but improved from yesterday. No wheezing/ rhonchi. Normal respiratory effort. Abdomen: Bowel tones present. Soft, obese, nontender, nondistended. No hepatosplenomegaly appreciated. Extremities: Mild edema up to just under the knees bilaterally. No clubbing, cyanosis, erythema appreciated. Skin: Normal temperature, turgor, and texture Neurological: Cranial nerves grossly intact. Normal muscle strength, tone, and bulk. Left hand tremulous throughout exam. No known gait impairment. Psychiatric: Normal mood and affect. Alert and oriented to person, place, and time. IVs and Medications Medications Reviewed: Medications were reviewed in detail Lab and Diagnostics Result Diagram: 05/20/17 0305 05/20/17 0305 Microbiology Blood cultures pending UA ordered X-Rays, CTs and MRIs Chest XR 05/19 IMPRESSION: 1. Persistent patchy bibasilar atelectasis, aspiration, or early bronchopneumonia. 2. Trace bibasilar pleural effusions are of uncertain etiology. Dictated by: Krunal Isabel M.D. on 05/19/2017 at 8:08 Approved by: Krunal Isabel M.D. on 05/19/2017 at 8:09 Chest XR 05/17 IMPRESSION: Patchy bibasilar consolidative opacities possibly low-grade aspiration/ atelectasis versus pneumonia. Cannot exclude superimposed pulmonary edema. Please correlate clinically. Dictated by: Corey Yousif M.D. on 05/17/2017 at 16:13 Approved by: Corey Yousif M.D. on 05/17/2017 at 16:[address]/Angio 05/17 IMPRESSION: 1. Moderate right and small left bilateral pleural effusions. 2. Multiple bilateral pulmonary nodules, subcentimeter in size but suspicious for pulmonary metastases. 3. No central pulmonary emboli identified. 4. Mediastinal and right hilar lymphadenopathy, suspect for metastatic jonathan involvement. 5. Enhancing 1 cm left adrenal nodule, suspect for metastasis. 6. Bilateral lower lobe consolidation, probably atelectatic but pneumonia or aspiration cannot be excluded, right greater than left. Dictated by: Dheeraj Nino M.D. on 05/17/2017 at 15:51 Approved by: Dheeraj Nino M.D. on 05/17/2017 at 16:07 Cardiac Echo Impressions Echo 05/18/17 Interpretation Summary There is normal left ventricular wall thickness. Left ventricular ejection fraction is estimated to be .60. The left atrium is severely dilated. There is mild mitral regurgitation. There is mild to moderate tricuspid regurgitation. The right ventricular systolic pressure is estimated at 45 mmHg assuming a right atrial pressure of 8 mm Hg. Assessment & Plan Allie Lopez is a pleasant 71 year old female with a past medical history significant for Hypertension, Diabetes type 2, and Parkinson's disease that presented to the Emergency Department on 05/17 via EMS with complaints of shortness of breath and fatigue that has been increasing steadily for 2 weeks now. Dyspnea on Exertion secondary to acute (new onset) CHF, present on admission. Acute. Ongoing. - Patient has nonproductive cough, increasing SOB for 2 weeks - D-dimer positive, CT angio negative for PE - CXR and CT Angio images - infectious vs. metastatic origin vs cardiac - Blood cultures, respiratory PCR panel, legionella and pneumococcal all negative - Sputum culture pending - Azithromycin day 4, will likely discontinue at day 5 - Echo as above - Cardiology plans to see her at 1100 on 05/20 Bradycardia, present on admission. Unknown chronicity. Stable. - EKG showed NSR, bradycardic with RBBB - Patient reports ~2 weeks increasing fatigue and dyspnea on exertion - Echo as above - Avoid chronotropic blood pressure meds -Cardiology as above Pulmonary Lesions, present on admission. Chronic. Stable. - Patient has family history of lung cancer, no smoking history - CT Angio revealed multiple bilateral pulmonary lesions with bibasilar effusions - No lesion amenable to IR biopsy at this time - Repeat imaging in 3 months to reevaluate - Patient will schedule with Oncology as outpatient for PET scan Acute Hypoxic Respiratory Failure, present on admission. Improving. - Patient is not on oxygen at baseline - Patient has been off oxygen since 05/20 and is maintaining saturations - She has diuresed ~2.5L and is breathing better - Cardiology as above Hypertension, present on admision. Chronic. Improving. - Patient's reports good BP control with home meds (Amlodipine 10mg, Lasix 40mg) - Amlodipine stopped due to LE edema - Lisinopril increased to 40mg daily alongside Lasix 40mg IV twice daily - Avoid chronotropic meds as she is bradycardic - Patient is still intermittently hypertensive, will talk with Cardiology about better management Diabetes Mellitus Type 2, present on admission. Chronic. Improving. - Patient on Metformin, Exenatide at home - Hold Exenatide - Restart Metformin 500mg BID - HA1C 7.6 - Continue low dose correctional and nutritional scale - Lantus 10 units qHS Parkinson's Disease, present on admission. Chronic. Stable. - Continue Primidone Obesity, present on admission. Chronic. - BMI 36.7 - Educate patient on available community resources Acetaminophen for mild pain, headache, and fever when necessary. Bowel regimen Senna and MiraLAX scheduled as necessary. Zofran when necessary for nausea and vomiting. SubQ heparin on board. SCDs in place. Disposition: Patient will likely be here for 2-3 more days depending on the continued improvement of her respiratory status and pending cardiology work up. VTE Mechanical Devices: Intermittant Pneumatic CD Resuscitation Status: CPR: Attempt Resuscitation (Patient would like "an attempt made" but that her leather craftsman friend Dr. Paul Velez would be in charge and when to "call it") Attending Statement The patient was seen and examined together with Dr. Harry on 05/20/17 and I have added additional information to the note above. Brian Harry DO May 20, 2017 11:10 Xiomy Myrick DO May 21, 2017 17:13
--- NOTE | 2017-05-20 13:55 | NUR ---
BP Pt hypertensive when sitting on edge of bed and when in chair, SBP low 200s. IV hyralazine given. Cardiology in to consult, ordered scheduled hydralazine, and pt to have stress test tomorrow; to be NPO after 0000 tonight. Pt denies pain/discomfort. SBA to BSC. SpO2 high 90s on RA. Uses call light to make needs known.
--- NOTE | 2017-05-20 15:47 | CONS ---
[address] [address] CARDIOLOGY INPATIENT CONSULTATION REPORT PATIENT: KANU FALCON : 1945 MR#: [id number] ADMIT: 05/17/2017 JOB ID: [id number] DATE OF SERVICE: 05/20/2017 REASON FOR CONSULTATION: Shortness of breath/dyspnea on exertion. HISTORY OF PRESENT ILLNESS: This is a very pleasant 71-year-old lady with history of Parkinson disease, DM hypertension, hypercholesterolemia, and no documented previous h/o CAD who was admitted to [facility] on May 17, 2017 with worsening dyspnea on exertion. The patient tells me that in November 2016 she had a hip replacement surgery done. After that she went through physical therapy and during that time she started having some episodes of lightheadedness. She was seen by her PCP Dr. Neal on 12/29/2016 when she was found to be bradycardic, and hypotensive. On EKG from that appointment it looks like she was in sinus rhythm with possible periodic junctional rhythm, RBBB and HR 33 bpm. For her bradycardia she had 72-hour Holter monitor which was done in January and was reported that she had predominantly sinus rhythm, no atrial fibrillation , no significant pauses; possible junctional rhythm was present; her average HR was 62 bpm, with the lowest in the 30s at 7 am. For her hypotension, Dr. Neal adjusted her medications: furosemide and losartan were stopped. She also was on propranolol which she was taking for tremor and she was weaned out from it and eventually it was stopped in February 2017. The patient tells me that since the propranolol was stopped she thinks that she has not been having significant lightheadedness. She gets sometimes positional lightheadedness when she gets up. She generally has history of dyspnea on exertion on longer distances. Two weeks ago she started having worsening SOB/UPTON on short distances, and she started gaining weight. She tells me that in 10 day she basically gained 20 pounds. Of note, the patient tells me that the last four or five years she intentionally lost about 105 pounds. Her symptoms got pretty pronounced, she went to urgent care and from there she was referred to [facility] ER. At [facility] ED from 04/17/2017 it was sinus rhythm with periodic junctional rhythm with HR 40s bpm and she had a known right bundle branch block. On admission she was hypertensive, with BP 144/51 mmHg and generally during her stay in the hospital she has been hypertensive up to blood pressure in 200/90s mmHg. Her labs on admission showed that she was anemic with hemoglobin 10 and hematocrit 32 which is not new. She had normal kidney function and electrolytes , had negative trop. She had a positive D-dimer of 1.21. She had a CT chest angio done which did not show pulmonary embolism but revealed that she had multiple bilateral pulmonary nodules suspicious for pulmonary metastasis. She also had mediastinal and right hilar lymphadenopathy and also had 1 cm left adrenal nodule suspected for metastasis. Also was noted bilateral lower lobe consolidation, probably atelectatic, but pneumonia and aspiration could not be excluded. The patient tells me that she is going to follow up with oncologist as an outpatient and there are already plans in place about that. She was diuresed and since admission she lost about 10 pounds and improved clinically and currently tells me that she is feeling much better. Her dyspnea on exertion has improved substantially. She never had any chest discomfort before or after admission. She denies having currently any lightheadedness but she still continues having some swelling in her legs. SOCIAL HISTORY: She does not smoke tobacco. She has a very remote brief history of tobacco smoking when she was a teenager, otherwise she never smoked tobacco. She uses alcohol rarely socially and denies recreational drug use. FAMILY HISTORY: No history of coronary artery disease. REVIEW OF SYSTEMS: A 12-point of review of systems is negative except as mentioned in the HPI. PAST MEDICAL HISTORY: Diabetes mellitus type 2 on insulin, Parkinson disease, hypertension. PAST SURGICAL HISTORY: Right hip replacement, right ankle surgery. PHYSICAL EXAMINATION: Vitals: Her blood pressure is 164/70, temperature 36.2 Celsius, pulse 53 beats per minute, saturation 94% on room air. General: No acute distress, comfortably sitting in a chair and talking to me. Talking with full sentences, compliant. HEENT: Mucous membranes moist. Eyes anicteric. Neck supple. No thyromegaly. Lungs: Normal breathing sounds bilaterally. Slightly decreased on the right side. No crackles, no wheezing. Cardiac: Regular rate and rhythm. No murmur or rubs appreciated. Normal S1, S2. Systolic pressure 1/6 on the base of the heart. JVP is not elevated. Abdomen: Nontender with palpation. Soft. Extremities: Lower extremity edema 2+ bilaterally. Skin: Dry and warm. Neuro: Alert and oriented x3. No gross abnormalities. LABORATORY DATA: Labs from May 20, 2017: Sodium 140, potassium 4.4, chloride 98, carbon dioxide 28, BUN 18, creatinine 0.83, estimated GFR 97, glucose 132, calcium 9.7. Total bilirubin 0.2, AST 12, ALT 9, alkaline phosphatase 61. White blood cells 5.3, red blood cells 3.21, hemoglobin 9.1, hematocrit 29.3, platelets 246. She had an echo done on May 18, 2017: she has a normal left ventricular wall thickness. Left ventricular ejection fraction is estimated to be 60%. Left atrium is severely dilated. There is mild mitral regurgitation. There is mild to moderate tricuspid regurgitation. Right ventricular systolic pressure is estimated at 45 mmHg with right atrial pressure of 8 mmHg. Per telemetry she has been bradycardic in the 40s at night and 50s bpm during the day. She has been in sinus rhythm with periodic junctional rhythm. ASSESSMENT/PLAN: This is a very pleasant 71-year-old lady with history of diabetes mellitus on insulin, Parkinson disease, hypertension, hyperlipidemia, chronic right bundle branch block, and a history of sinus bradycardia with episodes of junctional rhythm in the past, who on 05/17/2017 was admitted to [facility] with worsening dyspnea on exertion couple and increased swelling in her legs, diuresed and improved clinically.. # Dyspnea on exertion: Improved substantially after diuresis and lost up to 10 lb since admission. She has preserved cardiac function with LVEF 60%. Her symptoms of heart failure could be secondary to chronotropic incompetence. She has been bradycardic with episodes of what it looks like of junctional rhythm. She also has RBBB. She has conduction problems. Would recommend to avoid any AV blocking meds. She may benefit from pacemaker implantation. The patient will be further assessed tomorrow by on-call Seed Cutter Dr. Wadsworth with whom I discussed the case. [employer]-energy projects lead Dr. Soria is aware of the patient. Meanwhile, would recommend to keep the patient NPO from midnight for potential pacemaker implantation tomorrow. Also, would recommend holding the morning dose of heparin s/c and furosemide. Starting from tomorrow she could be switched to Furosemide 40 mg p.o BID, but would hold on the morning dose as I mentioned above. # Bradycardia with Junctional rhythm # RBBB # Acute diastolic heart failure - improved # Hypertension not well controlled; would recommend starting her on hydralazine 25 mg po three times a day. # Parkinson disease. MTDD
--- NOTE | 2017-05-20 16:21 | NUR ---
Social Work: Multidisciplinary Rounds Pt discussed in am rounds. Pt is not medically stable for discharge. Sw is following for discharge needs; PT eval has been placed. Pt lives at home and is open with [facility] for RN. Per PT evaluation, pt was only able to ambulate 3 feet and is recommending SNF; SENIOR ESCROW OFFICER will follow up with MD tomorrow at AM rounds to discuss this recommendation and will follow up with the patient/family per orders. SENIOR ESCROW OFFICER to continue to follow. TERESO Arizmendi Addendum: 05/20/17 at 1623 by JOSE PERERA Disregard aforementioned note. Note entered in error.
--- NOTE | 2017-05-20 16:24 | NUR ---
Social Work: Multidisciplinary Rounds Pt discussed in am rounds. Pt is not medically stable for discharge. Sw status remains unchanged; anticipate d/c home when medically stable. JAVASCRIPT PROGRAMMER to continue to follow to assess for d/c needs. Awaiting cardiology consult. Juliana Sampson MSW
--- NOTE | 2017-05-20 16:45 | PCM.ADCARE ---
Brian Harry DO 05/20/17 1645: Advance Care Planning Note Plan: Purpose of encounter: Goals of care Parties in attendance: Noreen Lopez, Dr. Harry, Dr. Myrick, Dr. Sol, Dr. Paul Velez DPM Decisional capacity: Good Diagnosis: Dyspnea on Exertion Bradycardia Pulmonary Lesions Acute Hypoxic Respiratory Failure Hypertension Diabetes Mellitus Type 2 Parkinson's Disease Obesity Plan: The patient and her are aware of the current diagnosis and would like to continue to be full code. The patient understands that this means for chest compressions, intubation, pressors, and all measures involved with CPR. CODE STATUS: Full code Time spent with advanced care planning: Greater than 16 minutes Xiomy Myrick DO 05/21/17 1251: Advance Care Planning Note Purpose of Encounter: Date of Service 05/20/17 Adv. Care Plan Documenation: The patient was seen and examined together with Dr. Harry on 05/20/17 and I agree with the history, exam and plan as outlined in the note above. Brian Harry DO May 20, 2017 16:45 iXomy Myrick DO May 21, 2017 12:51
--- NOTE | 2017-05-20 17:09 | CONS ---
[address] [address] CONSULTATION REPORT PATIENT: KANU FALCON : 1945 MR#: [id number] ADMIT: 05/17/2017 JOB ID: [id number] DATE OF SERVICE: 05/20/2017 REQUESTING PHYSICIAN: Dr. Truong HISTORY OF PRESENT ILLNESS: I saw and examined the patient. Please see Rusty Edwards PA-C's notes for details. IMPRESSION: 1. Acute diastolic heart failure. 2. Poorly controlled hypertension. 3. Diabetes mellitus. 4. Hypercholesterolemia. 5. Severe obesity with BMI of 37.4 kg/m2. 6. Probable obstructive sleep apnea. 7. Parkinson disease. PLAN: The patient responded quite well to intravenous furosemide. I would like to evaluate her myocardial perfusion by pharmacologic stress sestamibi since she has multiple coronary risk factors. Her difficult to control hypertension is multifactorial, likely due to obesity, untreated obstructive sleep apnea, and hip pain. I will add hydralazine 25 mg t.i.d. to her lisinopril 40 mg daily. I am going to obtain renal ultrasound to determine her kidney size.
--- NOTE | 2017-05-20 18:08 | NUR ---
BP/Tele No reports of chest pain/pressure/discomfort. Tele cornelia high 50s while awake with IVCD. Hydralazine administered at 1500 per MD orders, BP prior to admin 188 systolic. At 1600 VS, BP dropped to 160s systolic. Patient asymptomatic. No reports of SOB/dizziness. SPO2 within normal limits on RA. Denies n/v/d/c or abdominal pain. Pitting edema +1 to bilateral LE/ankles/feet --- patient reports this has greatly improved from when she first came in. No pain, tolerating PO intake well, voiding without complication.
[2017-05-20] MEDS: Insulin GLARgine 100 Unit/mL Syringe SUBQ SCH (21:13)
--- NOTE | 2017-05-20 22:17 | DRSVH ---
PROCEDURE: US RENAL SONOGRAM INDICATIONS: UNCONTROLLED HYPERTENSION TECHNIQUE: Real-time scanning was performed of the kidneys and bladder, with image documentation. COMPARISON: None. FINDINGS: Kidneys: Right kidney measures 11.3 cm long; left kidney measures 11.2 cm long. Right renal cortica l thickness is 1.9 cm; left renal cortical thickness is 1.8 cm. Renal cortical echotexture is normal . There is mild right pelvocaliectasis. No left hydronephrosis. Bladder: Pre-void images demonstrate no intraluminal masses or stones. Patient unable to void. On p re-void images, left ureteral jet noted with color Doppler interrogation. Right ureteral jet not vis ualized. (Of note, ureteral jets may not be detectable in up to 25% of cases due to insufficient dif ferences in specific gravity between ureteral and bladder urine). Miscellaneous: No free pelvic fluid. IMPRESSION: 1. Mild right pelvocaliectasis. 2. Right ureteral jet not visualized in the bladder. If there is clinical suspicion for an obstruct ing stone, further evaluation may be obtained with CT. Dictated by: Baldev Castro M.D. on 05/20/2017 at 22:08 Approved by: Baldev Csatro M.D. on 05/20/2017 at 22:15
[2017-05-21] VITALS (7 sets, daily range): BP systolic 159–172; BP diastolic 62–83; PULSE 50–85; RESP 16–20; O2SAT 92–94
[2017-05-21] MEDS: Heparin 5,000 Unit/mL Inj SUBQ SCH (00:30)
[2017-05-21 02:43] LABS: BASOPHILS % (AUTO) 0.7 % (0-3); EOSINOPHILS % (AUTO) 3.1 % (0-5); MONOCYTES % (AUTO) 15.6 % (4-12); Mean Corpuscular Hemoglobin 28.4 pg (27.0-35.0); Mean Corpuscular Volume 90.7 fL (81-100); NEUTROPHILS % (AUTO) 54.5 % (40-74); Platelet Count 250 bil/L (150-400)
[2017-05-21] MEDS: Albuterol-Ipratropium 3 mL Inhalation Solution NEB SCH ×2 (07:38→11:58)
[2017-05-21] MEDS: Insulin LISPRO 300 Unit/3 mL Inj SUBQ SCH ×2 (08:00→11:57)
--- NOTE | 2017-05-21 13:54 | PROG NOTE ---
[address] [address] PROGRESS NOTE PATIENT: KANU FALCON : 1945 MR#: [id number] ADMIT: 05/17/2017 JOB ID: [id number] DATE: 05/21/2017 IDENTIFICATION/HISTORY: The patient is a pleasant 71-year-old woman with a structurally normal heart, preserved LV function, Parkinson disease, diabetes, hypertension, dyslipidemia, obesity who is admitted with exertional dyspnea and identified to be volume overloaded. Echocardiography revealed preserved LV function with some evidence of diastolic dysfunction. She was diuresed and is doing much better. She is off of oxygen and feeling back to her normal self. She has described ongoing lightheadedness without syncope. Her monitoring in the hospital has revealed evidence of sick sinus syndrome with periods of junctional bradycardia, heart rates in the 30s and 40s. She has a chronic right bundle branch block. She has not been on any exacerbating medications. She used to be on propranolol for tremor but has been off for now a few months. IMPRESSION AND RECOMMENDATION: The patient is a pleasant 71-year-old woman with preserved LV function, Parkinson disease, diabetes, hypertension, obesity, dyslipidemia who has clear evidence of sick sinus syndrome with profound bradycardia and heart rates in the 30s and a junctional rhythm who is now having heart rates in the 50s. She is hemodynamically stable and currently asymptomatic. I recommended dual-chamber pacemaker implantation but do not think that she needs to remain in the hospital for it. I described the implant to her in detail, including risks and benefits. Ultimately, she wishes to proceed. PLAN: Dual-chamber pacemaker implantation as an outpatient. Thank you very much for allowing me to participate in the care of this patient. Please call with any questions.
[2017-05-21] MEDS ORDERED: HYDR-3939 PO (14:30)
[2017-05-21] MEDS ORDERED: LISI40TA PO (14:30)
[2017-05-21] MEDS ORDERED: FURO40TA4 PO (14:30)
--- NOTE | 2017-05-21 14:37 | PCM.DIMED ---
Brian Harry DO 05/21/17 1437: Discharge Instructions Date of Service May 21, 2017 Dates of Hospitalization May 17, 2017 at 18:10 Discharge Diagnosis Discharge Diagnosis Dyspnea on Exertion Pulmonary Lesions Bradycardia Acute Hypoxic Respiratory Failure Hypertension Diabetes Mellitus Type 2 Parkinson's Disease Obesity Diet Discharge Diet: Diabetic Call your provider Call your provider for: Fever or Chills, Shortness of breath, Chest pain, Other (Dizziness, Fatigue) Patient Instructions Patient Instructions You blood pressure regimen has been changed to the following: Stop taking Amlodipine Start taking the 2 new prescriptions - Lisinopril 40mg once daily and Hydralazine 25mg three times daily. Your Furosemide (Lasix) has been increased to 40mg twice daily. Please record your blood pressure in the morning and at night so that Dr. Neal can assess the effectiveness of this new plan. Dr. Soria's office will call you to schedule the pacemaker implantation. For your lung nodules, they will need to be assessed for changes in the next 3- 6 months - schedule this when you see Dr. Neal at your appointment on . Follow-up Provider: Jose Angel Neal MD Follow-up with PCP in: 1 week (She has appointment for 05/27) Xiomy Myrick DO 05/21/17 1706: Discharge Instructions Attending's Statement The patient was seen and examined together with Dr. Harry on 05/21/17 and I agree with the history, exam and plan as outlined in the note above. Brian Harry DO May 21, 2017 14:37 Xiomy Myrick DO May 21, 2017 17:06
--- NOTE | 2017-05-21 14:50 | PCM.DC.MED ---
Discharge Summary Date of Service May 21, 2017 Dates of Hospitalization Date of Hospital Admission May 17, 2017 at 18:10 Date of Discharge: May 21, 2017 Providers: Admitting Physician: Xiomy Myrick DO Primary Care Physician: Jose Angel Neal MD Attending Physician: Xiomy Myrick DO Diagnosis at Time of Discharge Diagnosis at Time of Discharge Dyspnea on Exertion secondary to new onset acute diastolic CHF Pulmonary Lesions Bradycardia Acute Hypoxic Respiratory Failure Hypertension Diabetes Mellitus Type [address] Parkinson's [address] Phelps and Dr. Soria, Cardiology Procedures XRay, CTs & MRIs Chest XR 05/19 IMPRESSION: 1. Persistent patchy bibasilar atelectasis, aspiration, or early bronchopneumonia. 2. Trace bibasilar pleural effusions are of uncertain etiology. Dictated by: Krunal Isabel M.D. on 05/19/2017 at 8:08 Approved by: Krunal Isabel M.D. on 05/19/2017 at 8:09 Chest XR 05/17 IMPRESSION: Patchy bibasilar consolidative opacities possibly low-grade aspiration/ atelectasis versus pneumonia. Cannot exclude superimposed pulmonary edema. Please correlate clinically. Dictated by: Corey Yousif M.D. on 05/17/2017 at 16:13 Approved by: Corey Yousif M.D. on 05/17/2017 at 16:[address]/Angio 05/17 IMPRESSION: 1. Moderate right and small left bilateral pleural effusions. 2. Multiple bilateral pulmonary nodules, subcentimeter in size but suspicious for pulmonary metastases. 3. No central pulmonary emboli identified. 4. Mediastinal and right hilar lymphadenopathy, suspect for metastatic jonathan involvement. 5. Enhancing 1 cm left adrenal nodule, suspect for metastasis. 6. Bilateral lower lobe consolidation, probably atelectatic but pneumonia or aspiration cannot be excluded, right greater than left. Dictated by: Dheeraj Nino M.D. on 05/17/2017 at 15:51 Approved by: Dheeraj Nino M.D. on 05/17/2017 at 16:07 Cardiac Echo Impression Echo 05/18/17 Interpretation Summary There is normal left ventricular wall thickness. Left ventricular ejection fraction is estimated to be .60. The left atrium is severely dilated. There is mild mitral regurgitation. There is mild to moderate tricuspid regurgitation. The right ventricular systolic pressure is estimated at 45 mmHg assuming a right atrial pressure of 8 mm Hg. Brief History Allie Lopez is a pleasant 71 year old female with a past medical history significant for Hypertension, Diabetes type 2, and Parkinson's disease that presented to the Emergency Department on 05/17 via EMS with complaints of shortness of breath and fatigue that has been increasing steadily for 2 weeks now. She denied any inciting event, just a progressive feeling of exhaustion and trouble breathing that now even walking 10 feet is almost impossible for her. She also endorsed a nonproductive cough and intermittent bilateral LE edema as well. She denies any chest pain or pressure, palpitations, fever/chills , nausea/vomiting, hemoptysis, melena or headaches. The initial question was pneumonia vs. cardiac (volume overload). Her infectious markers came back negative and the Ceftriaxone/Azithromycin were discontinued. She was diuresed aggressively for an eventual loss of 6.5 liters, during which her breathing improved and she weaned off oxygen. An echocardiogram was ordered and Cardiology was consulted due to her bradycardia. As she was feeling better and her bradycardia did not worsen, Dr. Soria recommended a pacemaker insertion as an outpatient. Her blood pressure medications were also changed by Cardiology (Amlodipine stopped, Lisinopril 40mg daily, Hydralazine 25mg TID, Lasix [address] scan of her chest, done to rule out PE, showed multiple pulmonary nodules. The case was discussed with IR, who reported they could not take a sample due to small size and location. She will need reimaging in 3-6 months for further assessment. Hospital Course Allie Lopez is a pleasant 71 year old female with a past medical history significant for Hypertension, Diabetes type 2, and Parkinson's disease that presented to the Emergency Department on 05/17 via EMS with complaints of shortness of breath and fatigue that has been increasing steadily for 2 weeks now. Dyspnea on Exertion secondary to new onset acute diastolic CHF, present on admission. Acute. Resolved. - Patient has been stable off all oxygen requirements for 48h - Infectious panels (WBC, respiratory PCR, blood cultures, legionella, pneumococcus) all negative - Received Ceftrixone x2d, Azithromycin x5d - Echocardiogram as above Pulmonary Lesions, present on admission. Chronic. Stable. - CT Angio revealed multiple bilateral pulmonary lesions - Case discussed with IR, no lesions amenable to biopsy at this time - Case discussed with Oncology, recommend PET scan and follow up as outpatient - Plan is to get repeat imaging in 3 months to reevaluate Bradycardia, present on admission. Unknown chronicity. Stable. - EKG showed NSR, bradycardic with RBBB - Echo as above - Dr. Soria will see her for pacemaker placement as an outpatient - Avoid chronotropic blood pressure meds Acute Hypoxic Respiratory Failure, present on admission. Resolved. - Improved with diuresis - Patient not on oxygen at baseline; has been successfully weaned off and stable for 48h Hypertension, present on admision. Chronic. Improving. - Cardiology changed her regimen to the following: Stop Amlodipine Start Lisinopril 40mg daily Start Hydralazine 25mg TID Increase Lasix to 40mg BID - Patient will record BP and see Dr. Neal, her PCP, to evaluate regimen change Diabetes Mellitus Type 2, present on admission. Chronic. Stable. - Restart home Metformin, Exenatide - HA1C 7.6 - Continue to follow up with Dr. Betancur as scheduled Parkinson's Disease, present on admission. Chronic. Stable. - Continue home Primidone Obesity, present on admission. Chronic. - BMI 36.7 - Educated patient on available community resources Disposition: Patient was discharged to home in stable and improved condition. She expressed understanding of her new medication regimen and the plan for her pulmonary nodules and pacemaker implantation, and under what conditions she is to return to the hospital. Exam Vital Signs (Last) Date Time Temp Pulse Resp B/P Pulse Ox O2 Delivery O2 Flow Rate FiO2 05/21/17 12:00 36.8 53 18 165/62 93 Room Air 05/19/17 15:08 1.00 Exam General: Obese elderly woman sitting upright in no acute distress without oxygen , well-developed, well-nourished, appropriately interactive HEENT: NCAT. PERRLA, EOMI. Oropharynx free of erythema with moist mucosa. Neck: Supple with full range of motion. No jugular venous distension. No thyromegaly. Cardiovascular: Still bradycardic with normal rhythm without murmurs, rubs, or gallops appreciated Pulmonary: CTA bilaterally. No wheezing/rhonchi. Normal respiratory effort. Abdomen: Bowel tones present. Soft, obese, nontender, nondistended. No hepatosplenomegaly appreciated. Extremities: Mild edema mcfp to the knee. No clubbing, cyanosis, erythema appreciated. Skin: Normal temperature, turgor, and texture Neurological: Cranial nerves grossly intact. Normal muscle strength, tone, and bulk. Left hand tremulous throughout exam. No known gait impairment. Psychiatric: Normal mood and affect. Alert and oriented to person, place, and time. Test 05/17/17 14:16 05/17/17 15:02 05/17/17 19:38 05/18/17 02:50 D-Dimer 1.21mg/L FEU (<0.50) Hold Urine Received (Received) Urine Legionella pneumophilia Ag Negative (Negative) Urine Color Yellow (YELLOW) Urine Appearance Clear (CLEAR,HAZY) Urine pH 5.5 (5.0-8.0) Urine Specific [place] 1.015 (1.003-1.035) Urine Protein 100mg/dL (NEG,TRACE) Urine Glucose (UA) Negativemg/dL (NEGATIVE) Urine Ketones Negativemg/dL (NEGATIVE) Urine Occult Blood Small (NEGATIVE) Urine Nitrite Negative (NEGATIVE) Urine Bilirubin Negative (NEGATIVE) Urine Urobilinogen Normalmg/dL (NORMAL) Urine Leukocyte Esterase Negative (NEGATIVE) Urine RBC 0-2/hpf (0-2) Urine WBC 0-5/hpf (0-5) Urine Epithelial Cells Few/hpf (NONE-MOD) Urine Crystals None seen (NONE SEEN) Urine Bacteria Few/hpf (NONE-FEW) Urine Hyaline Casts None/lpf (NONE) Urine Granular Casts None seen (NONE SEEN) Urine Waxy Casts None seen (NONE SEEN) Urine Red Blood Cell Casts None seen (NONE SEEN) Urine White Blood Cell Casts None seen (NONE SEEN) Urine Mucus None seen (None Seen) Urine Trichomonas None seen (NONE SEEN) Urine Yeast None (NONE SEEN) Urinalysis Comment None Urine Culture Reflexed Not indicated Hemoglobin A1c 7.6% (4.8-5.6) Magnesium Level 1.7mg/dL (1.6-2.6) Test 05/20/17 03:05 05/20/17 15:35 05/21/17 02:25 Pro-B-Type Natriuretic Peptide 1412pg/mL (0-301) Thyroid Stimulating Hormone (TSH) 5.050uIU/mL (0.450-4.500) Free Thyroxine 1.32ng/dL (0.82-1.77) Troponin T < 0.010ug/L (0.0-0.011) White Blood Count 5.6th/mm3 (3.8-10.1) Red Blood Count 3.13mil/mm3 (3.90-5.20) Hemoglobin 8.9g/dL (12.0-15.6) Hematocrit 28.4% (35.0-46.0) Mean Corpuscular Volume 90.7fL (81-100) Mean Corpuscular Hemoglobin 28.4pg (27.0-35.0) Mean Corpuscular Hemoglobin Concent 31.3% (32.0-37.0) Red Cell Distribution Width 14.7% (12.3-15.4) Platelet Count 250bil/L (150-400) Neutrophils (%) (Auto) 54.5% (40-74) Lymphocytes (%) (Auto) 25.9% (14-46) Monocytes (%) (Auto) 15.6% (4-12) Eosinophils (%) (Auto) 3.1% (0-5) Basophils (%) (Auto) 0.7% (0-3) Sodium Level 140mEq/L (134-144) Potassium Level 4.0mEq/L (3.5-5.2) Chloride Level 96mEq/L (97-108) Carbon Dioxide Level 30mmol/L (18-29) Blood Urea Nitrogen 17mg/dL (8-27) Creatinine 0.88mg/dL (0.57-1.00) Estimat Glomerular Filtration Rate 90mL/min (>59) Glucose Level 115mg/dL (60-99) Calcium Level 9.6mg/dL (8.5-10.1) Total Bilirubin 0.2mg/dL (0.0-1.2) Aspartate Amino Transf (AST/SGOT) 12U/L (0-50) Alanine Aminotransferase (ALT/SGPT) 9U/L (0-32) Alkaline Phosphatase 63U/L (25-165) Total Protein 6.3g/dL (6.4-8.4) Albumin 3.7g/dL (3.4-5.0) Triglycerides Level 215mg/dL (0-149) Cholesterol Level 125mg/dL (100-199) LDL Cholesterol, Calculated 37.000mg/dL (0-99) VLDL Cholesterol 43.000mg/dL HDL Cholesterol 45mg/dL (>39) Cholesterol/HDL Ratio 2.78 (0.0-4.4) Microbiology Results Blood cultures pending UA ordered Discharge Medications Discharge Medications Acetaminophen (Acetaminophen) 500 Mg Tablet 1,500 MG PO HS (Reported) Atorvastatin (Lipitor) 20 Mg Tablet 20 MG PO HS (Reported) Bimatoprost (Lumigan) 45 Drop/2.5 Ml Ophsoln 1 DROP BOTH_EYES HS (Reported) Exenatide Inj (Bydureon Inj) 2 Mg Vial 2 MG SUBQ WEEKLY (Reported) WEDNESDAYS Furosemide (Furosemide) 40 Mg Tablet 40 MG PO BID Prescribed by: SAVANNAH HARRY, Hydralazine (Hydralazine) 25 Mg Tablet 25 MG PO TID Prescribed by: SAVANNAH HARRY, DO Lisinopril (Lisinopril) 40 Mg Tablet 40 MG PO DAILY Prescribed by: SAVANNAH HARRY, DO Metformin ER (Metformin ER) 500 Mg Tablet 1,000 MG PO BIDWM (Reported) Primidone (Primidone) 50 Mg Tablet 75 MG PO HS (Reported) Followup Plan Discharge Diet: Diabetic Patient Instructions You blood pressure regimen has been changed to the following: Stop taking Amlodipine Start taking the 2 new prescriptions - Lisinopril 40mg once daily and Hydralazine 25mg three times daily. Your Furosemide (Lasix) has been increased to 40mg twice daily. Please record your blood pressure in the morning and at night so that Dr. Neal can assess the effectiveness of this new plan. Dr. Soria's office will call you to schedule the pacemaker implantation. For your lung nodules, they will need to be assessed for changes in the next 3- 6 months - schedule this when you see Dr. Neal at your appointment on . Follow-up Provider: Jose Angel Neal MD Follow-up with PCP in: 1 week (She has appointment for 05/27) Time spent greater than 35min copies to: Jose Angel Neal MD, Jeffery S DO May 21, 2017 14:50 Xiomy Myrick DO May 21, 2017 17:25 Ángel can assess the effectiveness of this new plan. Dr. Soria's office will call you to schedule the pacemaker implantation. For your lung nodules, they will need to be assessed for changes in the next 3- 6 months - schedule this when you see Dr. Neal at your appointment on . Follow-up Provider: Jose Angel Neal MD Follow-up with PCP in: 1 week (She has appointment for 05/27) Savannah Harry DO May 21, 2017 14:50
--- NOTE | 2017-05-21 16:00 | NUR ---
Discharge Pt left with at 1600. All discharge instructions including changes in medications and new prescriptions gone over. New information on CHF given and diet changes needed were discussed. Pt left A&Ox3, Vitals stable, and all questions answered. IV and tele removed, all belongings taken with.
--- NOTE | 2017-05-21 16:03 | NUR ---
Social Work: Multidisciplinary Rounds/Discharge D: Pt discussed in am rounds. Pt is medically stable for discharge home pending visit from cardiology. MD and team have no concerns regarding pt's capacity for self care, MD identifies no sw needs for d/c. Pt has active discharge order in place. APARTMENT LEASING SPECIALIST met with the patient at bedside to confirm discharge plan. Pt and spouse both agree with plan to d/c home. No concerns about d/c noted and no barriers identified. EMR reviewed; no sw needs at this time. Pt has been ambulating I during admission. A:Pt who is I at baseline. P: Pt to discharge home via POV and spouse to transport. TERESO Arizmendi
== END 2017-05-21 16:00 | disposition home or self-care (01) | DRG 291 ==
LOC: SED 13:58 → PCC 18:10
PROVIDERS: ADMIT Neuromusculoskeletal Medicine & OMM; ATTEND Neuromusculoskeletal Medicine & OMM
DX: I50.31 Acute diastolic (congestive) heart failure (principal); J96.01 Acute respiratory failure with hypoxia; E66.9 Obesity, unspecified; Z68.37 Body mass index [BMI] 37.0-37.9, adult; I45.10 Unspecified right bundle-branch block; I10 Essential (primary) hypertension; E11.9 Type 2 diabetes mellitus without complications; Z79.84 Long term (current) use of oral hypoglycemic drugs; G20 Parkinson's disease; R91.8 Other nonspecific abnormal finding of lung field; E78.5 Hyperlipidemia, unspecified; I49.5 Sick sinus syndrome

== ENCOUNTER 2017-06-10 01:02 | Day surgery (SDC) | payer MEDICARE, OTHER ==
[2017-06-10] VITALS (14 sets, daily range): BP systolic 147–218; BP diastolic 53–102; PULSE 51–80; RESP 12–20; O2SAT 90–96
[~2017-06-10] VITALS: Ht 170.2 cm; Wt 99.2 kg
[~2017-06-10 01:02] MED LIST: ACET-171 PO; ATOR20TA PO; BIMA2.5D5 BOTH_EYES; EXEN2VIA SUBQ; FURO40TA4 PO; HYDR-3939 PO; LISI40TA PO; METF500T7 PO; PRIM50TA PO
--- NOTE | 2017-06-10 06:00 | NUR ---
ADMISSION NOTE FEMALE PT ADMITTED FOR PACEMAKER. DISCUSSED PLAN OF CARE WITH PT AND . SEE ADMIT AND FLOW SHEET
[2017-06-10] MEDS ORDERED: Vancomycin Inj 1,000 MG in IV Premix 1 EACH IV ONE ×2 (06:30→22:15)
[2017-06-10 06:58] LABS: BASOPHILS % (AUTO) 0.5 % (0-3); EOSINOPHILS % (AUTO) 4.7 % (0-5); MONOCYTES % (AUTO) 11.7 % (4-12); Mean Corpuscular Hemoglobin 28.5 pg (27.0-35.0); Mean Corpuscular Volume 91.6 fL (81-100); NEUTROPHILS % (AUTO) 63.2 % (40-74); Platelet Count 268 bil/L (150-400)
[2017-06-10 07:22] LABS: INR 0.96 ratio
[2017-06-10] MEDS ORDERED: CARB1TAB14 PO (07:27)
[2017-06-10] MEDS ORDERED: Heparin 10,000 Unit/1,000 mL NS Premix IV ONE (07:50)
[2017-06-10] MEDS ORDERED: Bupivacaine-MPF 0.5% 30 mL Inj ONE (07:50)
[2017-06-10] MEDS ORDERED: 0.9% Sodium Chloride 250 ML ONE (07:50)
[2017-06-10] MEDS ORDERED: Vancomycin 1,000 mg Inj ONE (08:32)
[2017-06-10] MEDS ORDERED: fentaNYL-PF 50 mCg/mL 2 mL Inj ONE (08:32)
[2017-06-10] MEDS ORDERED: Water for Injection 50 ML IV ONE (08:33)
[2017-06-10] MEDS ORDERED: HYDROcodone-APAP 5-325 mg Tablet PO PRN (10:15)
[2017-06-10] MEDS ORDERED: Ondansetron 2 mg/mL 2 mL Inj IVPUSH PRN (10:15)
--- NOTE | 2017-06-10 10:35 | NUR ---
POST PROCEDURE NOTE RETURNED FROM SUPERCALENDER OPERATOR. SEE FLOW SHEET
--- NOTE | 2017-06-10 11:22 | OP ---
[address] [address] OPERATIVE REPORT PATIENT: KANU FALCON : 1945 MR#: [id number] ADMIT: 06/10/2017 JOB ID: [id number] DATE OF SURGERY: 06/10/2017 PREOPERATIVE DIAGNOSIS(ES): Sick sinus syndrome. POSTOPERATIVE DIAGNOSIS(ES): Sick sinus syndrome. PROCEDURES PERFORMED: 1. Dual-chamber pacemaker implantation. 2. Fluoroscopy. SURGEON: Lincoln Soria M.D., electrophysiology attending. SET UP MECHANIC CROWN ASSEMBLY MACHINE: Priscilla Doe. IMPLANTED DEVICE: 1. [employer] pulse generator, model VX3443, serial #[id number]. 2. Right atrial lead [employer] 1200, 52 cm, serial #[id number]. 3. RV lead [employer] 1250, 8 cm, serial #[id number]. ANESTHESIA: Bolus dosing of Versed and fentanyl utilized to an appropriate level of sedation. INDICATION: This is a pleasant 72-year-old woman with preserved LV function and sick sinus syndrome. After discussion of risks and benefits of pacemaker implantation, she opted to proceed. PROCEDURAL DESCRIPTION: Following informed signed consent, the patient was taken to the EP laboratory in a fasting, non-sedated state where she was prepped and draped in the usual sterile fashion. The left infraclavicular region was infiltrated with 40 cc of a 50/50 mixture of bupivacaine and lidocaine. Once adequate anesthesia had been achieved, a 3 cm transverse incision was performed 2 cm below the clavicle. Dissection was carried down to the pectoralis fascia and a pocket was then fashioned using a combination of electrocautery and blunt dissection. Once adequate hemostasis had been achieved, access to the left axillary vein was gotten with a micropuncture needle twice to deploy two 0.035, 3 mm J guidewires. Over the first of these, an 8-Yi tear-away sheath was advanced. Once the guidewire was removed, an active fixation was advanced to the right ventricular outflow tract, ultimately into the RV apex. The lead was affixed in position using an associated active fixation screw. It was connected to the external analyzer and demonstrated appropriately sensed R waves, impedance. Capture threshold was checked to 10 V and there was no evidence of diaphragmatic stimulation. Attention was now paid to the right atrial lead. Over the previously deployed J guidewire, another 8-Yi tear-away sheath was advanced. Once the guidewire was removed, an active fixation lead was advanced to the right atrial appendage. It was affixed in position using associated active fixation screw. It was connected to the external analyzer and demonstrated appropriately sensed P waves, impedance, capture and threshold. It was checked to 10 V and there was no diaphragmatic stimulation. Once the position and redundancy of both leads was confirmed with multiple fluoroscopic views, the leads were anchored to the prepectoralis fascia using their associated anchoring sleeves and two Ethibond sutures. The pocket was irrigated copiously with antibiotic solution. The leads were connected to the generator, adjusted to fit the pocket and affixed to the floor of the pocket using 1-0 Ti-Cron suture. The incision was then closed with running layers of absorbable suture. The wound was dressed with skin adhesive and a small dressing. At the end the procedure, the needle, sponge, and instrument counts were all correct. COMPLICATIONS: None. ESTIMATED BLOOD LOSS: Negligible. DEVICE MEASURED DATA: 1. Right atrial lead 3.7 mV, 430 ohms 0.75 V at 0.4 msec. 2. RV lead 6.8 mV, 590 ohms, 0.5 V at 0.4 msec. FINAL PROGRAM PARAMETERS: DDD 60-130 beats per minute with VIP on. IMPRESSION: Successful dual-chamber pacemaker implantation. PLAN: 1. Stat portable chest x-ray. 2. PA and lateral chest x-ray tomorrow. 3. Device interrogation. 4. IV vancomycin through tomorrow. 5. Doxycycline x7 days. 6. Wound check in one week. ATTENDING STATEMENT: Lincoln Soria M.D., electrophysiology attending was present for and supervised/performed all aspects of this procedure.
--- NOTE | 2017-06-10 11:41 | DRSVH ---
PROCEDURE: X-RAY CHEST ONE VIEW, PORTABLE ([id number]) INDICATIONS: For new leads placed TECHNIQUE: One view of the chest was acquired. COMPARISON: [facility], [place], BONE SCAN WHOLE BODY, 10/19/2014, 14:44. [facility] ital, CT, CT ANGIO CHEST PE, 05/17/2017, 15:37. [facility], , XR CHEST 1VW (PORTABLE), 05/17/2017, 15:39. FINDINGS: Surgical changes and devices: There is a cardiac pacemaker with studies in expected position. Lungs and pleura: No pleural effusions or pneumothorax. Lungs are clear. Mediastinum: Mediastinal contours appear normal. Heart size is normal. Bones and chest wall: There is regular densities above the clavicles/scapulae bilaterally. Overlying soft tissues appear unremarkable. IMPRESSION: 1. Cardiac pacer leads in expected position. No complication. 2. Irregular densities above the clavicles/scapulae bilaterally, uncertain clinical significance. Dif ferential diagnoses include periosteal reactions versus artifacts. Recommend attention to this area o n followup chest x-ray. Dictated by: Rajan Alarcon M.D. on 06/10/2017 at 10:34 Approved by: Rajan Alarcon M.D. on 06/10/2017 at 10:39
--- NOTE | 2017-06-10 13:20 | NUR ---
TRANSFER NOTE TO [facility]. REPORT GIVEN
[2017-06-10] MEDS: 0.9% Sodium Chloride 1,000 ML IV SCH ×5 (13:48→23:11)
--- NOTE | 2017-06-10 14:07 | NUR ---
[facility] Patient report called by JOSUE GUERRERO. Patient arrived to room 3005 on [facility] via wheelchair. Patient had left arm in sling and had complaints of discomfort, but not pain. Offered an ice bag and patient accepted. Patient oriented to room, call light, staff, television, menu for meals and visiting hours. Patient alert and oriented X4 and cooperative with care. White board updated and explained to patient plan of care. Bed locked and call light with in reach.
[2017-06-11 03:54] VITALS: PULSE 78; RESP 18; O2SAT 94
[2017-06-11 04:55] VITALS: PULSE 75
[2017-06-11 05:16] VITALS: BP 149/80
[2017-06-11 08:00] VITALS: PULSE 82
[2017-06-11] MEDS: 0.9% Sodium Chloride 1,000 ML IV SCH (08:03)
--- NOTE | 2017-06-11 08:45 | PCM.DIMED ---
Discharge Instructions Date of Service Jun 11, 2017 Dates of Hospitalization Discharge Diagnosis Discharge Diagnosis Sick Sinus Syndrome Sinus Bradycardia Hypertension Diabetes Parkinson's Disease Diet Discharge Diet: Low fat, Low Sodium, Heart Healthy, Diabetic Activity Discharge Activity: Other (Keep incision dry one day. Do not extend left elbow high above shoulder for one month. Do not lift, push or pull more than 10 lbs with the left arm for one month.) Call your provider Call your provider for: Fever or Chills, Bleeding, Excessive diarrhea Patient Instructions Follow-up in: 1 week Mid-level Provider (F9): Sarwat Muro PA-C Follow-up with Mid-level in: 6 weeks Sarwat Muro PA-C Jun 11, 2017 08:45
--- NOTE | 2017-06-11 09:00 | DRSVH ---
PROCEDURE: X-RAY CHEST, TWO VIEWS ([id number]) INDICATIONS: For new lead placement TECHNIQUE: 2 views of the chest were acquired. COMPARISON: [facility], CR, XR CHEST 1VW (PORTABLE), 06/10/2017, 10:49. [facility], CR, XR CHEST 2VW, 05/19/2017, 8:46. FINDINGS: Surgical changes and devices: Stable positioning of a cardiac pacer. Lungs and pleura: No pleural effusions or pneumothorax. Lungs are clear. Mediastinum: Mediastinal contours are normal. Heart size is normal. Bones and chest wall: No suspicious bony abnormalities. Soft tissues appear unremarkable. No clavi cular abnormalities identified. IMPRESSION: Stable chest post pacer placement. Dictated by: Rayray Brooks [facility] Interpreted: Sarwat Burden MD on 06/11/2017 at 8:39 Approved by: Sarwat Burden M.D. on 06/11/2017 at 8:57
[2017-06-11] MEDS ORDERED: DOXY100C2 PO (09:05)
[2017-06-11 09:50] VITALS: BP 152/76; PULSE 82; RESP 18; O2SAT 93
--- NOTE | 2017-06-11 10:20 | NUR ---
DISCHARGE Pt dc'd home this morning at 1015, off unit in w/c accompanied by BICYCLE RENTAL CLERK and pt's . Pt A&Ox4, denies any pain and in no apparent distress. IV dc'd intact, all belongings returned. Vital signs stable. All instructions for diet, activity, medications, prescriptions and follow up as well as restrictions to LUE and wound care discussed with pt, who reports understanding.
--- NOTE | 2017-06-11 14:03 | DIS ---
[address] [address] DISCHARGE SUMMARY PATIENT: KANU FALCON : 1945 MR#: [id number] ADMIT: 06/10/2017 JOB ID: [id number] DIS: 06/11/2017 DATE OF ADMISSION: 06/10/2017 DATE OF DISCHARGE: 06/11/2017 DATE OF SERVICE: 06/11/2017 REASON FOR ADMISSION: Pacemaker implant. CHIEF COMPLAINT: Exertional dyspnea and bradycardia in the 30s. BRIEF HISTORY: The patient is a very pleasant, 72-year-old woman with a history of diabetes, hypertension and bradycardia. The ECG recordings have shown right bundle branch block and periodic junctional rhythm and heart rates as low as 33. She was advised of the benefits of a pacemaker in keeping her heart rate to normal to prevent lightheadedness, falls and syncope. COURSE IN HOSPITAL: The patient was admitted through the [facility] and taken to the laborer tan house, where she received the dual chamber pacemaker without incident. She was transferred back to the [facility] for recovery from sedation and then transferred up to the third floor [facility] for overnight telemetry monitoring. She did well overnight, the pacemaker site was closed and dry, and there was no hematoma. Chest x-ray in the morning showed good lead positions and no pneumothorax. The lead evaluations showed excellent capture and sensing thresholds and she has been paced in the atrium, 43% of the time. She felt well for discharge home in the morning and was without significant pain. DISPOSITION: The patient was discharged home in good condition with a followup appointment at the [facility] Cardiology office in one week. She was asked not to extend her left elbow high above her left shoulder for one month and not to lift, push or pull more than 10 pounds with the left arm for one month. She is to follow her heart healthy and diabetic diets and take medications as prescribed. DISCHARGE MEDICATIONS: 1. Doxycycline 100 mg daily for one week only. 2. Acetaminophen 1500 mg q.h.s. 3. Atorvastatin 20 mg q.h.s. 4. Lumigan eyedrops 1 drop both eyes daily. 5. Carbidopa/levodopa 25/100 mg 1 tab t.i.d. 6. Exenatide injections 2 mg subcu weekly. 7. Furosemide 40 mg b.i.d. 8. Hydralazine 25 mg t.i.d. 9. Lisinopril 40 mg daily. 10. Metformin ER 1 g b.i.d. with meals. 11. Primidone 75 mg q.h.s. FINAL DIAGNOSES: 1. Symptomatic sinus bradycardia. 2. Hypertension. 3. Diabetes mellitus.
== END 2017-06-11 10:15 | disposition home or self-care (01) ==
LOC: SOUO 01:02 → MPC 13:23 → SOUO 06-11 10:15
PROVIDERS: ATTEND Internal Medicine Cardiovascular Disease
DX: I49.5 Sick sinus syndrome (principal); E11.9 Type 2 diabetes mellitus without complications; I10 Essential (primary) hypertension; I45.10 Unspecified right bundle-branch block; Z79.84 Long term (current) use of oral hypoglycemic drugs
CPT/HCPCS: 33208; 36415; 71010; 71020; 80048; 85025; 85610; 93005; 99152; 99153; C1769; C1785; C1892; C1898; J1644; J2250; J3010; J3370; J7050; Q9967